=== PATIENT | male | born 1945 | race Caucasian/White ===

== ENCOUNTER 2017-04-05 08:17 | Day surgery (SDC) | payer BC ==
[~2017-04-05 08:17] MED LIST: Lactated Ringers 1,000 ML IV SCH; Lidocaine 1% 4 ML ONE; Lidocaine 1%/Sod Bicarbonate in NS 8.4% 1 ML Syringe PRN; Propofol 200 MG/20 ML SDV ONE; Sodium Chloride 0.9% 10 ML Syringe FLUSH PRN; fentaNYL 100 MCG/2 ML SDV ONE
--- NOTE | 2017-04-05 08:45 | PCM.PREANE ---
Preanesthetic Assessment - Anesthesia/Transfusion/Family Hx Anesthesia History: Prior Anesthesia Without Reaction Family History of Anesthesia Reaction: No Transfusion History: No Prior Transfusion(s) Intubation History: Unknown - Review of Systems General: No Symptoms Pulmonary: No Symptoms (Current smoker: smokes less than 1 pack/day times 30 years) Cardiovascular: No Symptoms Gastrointestinal: No Symptoms, Constipation, Flatus, Melena Neurological: No Symptoms (GERD) Other: Reports: Easy Bleeding, Easy Bruising - Physical Assessment NPO Status Date: 04/04/17 NPO Status Time: 18:00 Pulse: 83 O2 Sat by Pulse Oximetry: 94 Respiratory Rate: 16 Blood Pressure: 156/99 Temperature: 36.9 C Height: 1.78 m Weight: 74.843 kg ASA Class: 2 Mental Status: Alert & Oriented x3 Airway Class: Mallampati = 2 Dentition: Reports: Dentures (upper /lower) Thyro-Mental Finger Breadths: 3 Mouth Opening Finger Breadths: 3 ROM/Head Extension: Full Lungs: Clear to Auscultation, Normal Respiratory Effort Cardiovascular: Regular Rate, Regular Rhythm, No Murmurs - Allergies Allergies/Adverse Reactions: Allergies Allergy/AdvReac Type Severity Reaction Status Date / Time No Known Allergies Allergy Verified 04/04/17 09:24 - Anesthesia Plan Pre-Op Medication Ordered: None - Acknowledgements Anesthesia Type Planned: MAC Pt an Appropriate Candidate for the Planned Anesthesia: Yes Alternatives and Risks of Anesthesia Discussed w Pt/Guardian: Yes Pt/Guardian Understands and Agrees with Anesthesia Plan: Yes PreAnesthesia Questionnaire Genitourinary History: Reports: Prostate Disorder Musculoskeletal History: Other Musculoskeletal History: lower back pain - Past Surgical History HEENT Surgical History: Reports: Cataract Surgery - SUBSTANCE USE Smoking Status *Q: Current Every Day Smoker Days Per Week of Alcohol Use: 0 (very rare alchol use. ) Recreational Drug Use History: No Recreational Drug Type: - HOME MEDS Home Medications: Home Meds Ciprofloxacin HCl [Cipro] 500 mg PO BID #6 tablet 12/17/15 [Rx] Dicyclomine HCl [Bentyl] 20 mg PO Q6HR #6 tablet 12/17/15 [Rx] Flomax. 0.4 mg PO DAILY 12/17/15 [History] Omeprazole. 20 mg PO DAILY 12/17/15 [History] Dutasteride 0.5 mg PO DAILY 04/04/17 [History] Varenicline Tartrate [Chantix] 1 tab PO ASDIRECTED 04/04/17 [History] - CURRENT (IN HOUSE) MEDS Current Meds: Current Medications Lactated Ringer's (Ringers, Lactated) 1,000 mls @ 125 mls/hr IV ASDIRECTED AL Stop: 04/05/17 23:00 Lidocaine/Sodium Bicarbonate (Buffered Lidocaine 1% In Ns 8.4%) 0.25 ml .XX ONETIME PRN PRN Reason: Prior to IV Start Stop: 04/05/17 18:00 Sodium Chloride (Saline Flush) 10 ml FLUSH ASDIRECTED PRN PRN Reason: Keep Vein Open Stop: 04/05/17 18:00 Discontinued Medications Fentanyl (Sublimaze) Confirm Administered Dose 100 mcg .ROUTE .STK-MED ONE Stop: 04/05/17 07:41 Lidocaine HCl (Xylocaine-Mpf 1%) Confirm Administered Dose 4 mls @ as directed .ROUTE .STK-MED ONE Stop: 04/05/17 07:40 Propofol (Diprivan 20 Ml) Confirm Administered Dose 200 mg .ROUTE .STK-MED ONE Stop: 04/05/17 07:40
[2017-04-05] MEDS ORDERED: Lactated Ringers 1,000 ML ONE (10:14)
[2017-04-05] MEDS ORDERED: Propofol 200 MG/20 ML SDV ONE (10:21)
--- NOTE | 2017-04-05 10:28 | PCM48HPAN ---
Post Anesthesia Note - EVALUATION WITHIN 48HRS OF ANESTHETIC Vital Signs in Normal Range: Yes Patient Participated in Evaluation: Yes Respiratory Function Stable: Yes Airway Patent: Yes Cardiovascular Function Stable: Yes Hydration Status Stable: Yes Pain Control Satisfactory: Yes Nausea and Vomiting Control Satisfactory: Yes Mental Status Recovered: Yes
--- NOTE | 2017-04-05 10:34 | PCM.OPNOTE ---
- General Post-Op/Procedure Note Date of Surgery/Procedure: 04/05/17 Operative Procedure(s): 1. Esophagogastroduodenoscopy. 2. Colonoscopy with endoscopic mucosal resection of a proximal rectal polyp, and hot snare polypectomy of a mid rectal polyp Findings: 1. Gastric polyposis with diminutive gastric polyps, mild gastritis 2. Uncomplicated internal hemorrhoids. 3. Prostate hypertrophy 4. Colonic diverticulosis 5. 3 cm sessile and villous type proximal rectal polyp 6. 1 cm mid rectal polyp Pre Op Diagnosis: 1. Melena. 2. Rectal bleeding which change in bowel habits Post-Op Diagnosis: 1. Stable gastric polyposis, mild gastritis. 2. Large rectal polyp and smaller mid rectal polyp. 3. Sigmoid diverticulosis. 4. Uncomplicated internal hemorrhoids. 5. Large hypertrophied prostate Anesthesia Technique: MAC, Moderate Sedation Primary Surgeon: Rc Ferrer Pathology: 1. 2 rectal polyps as described above EBL in mLs: 0 Complications: None Condition: Good Free Text/Narrative:: After adequate IV sedation and analgesia with monitoring the patient was placed on his left side. Through a bite-block lubricated upper endoscope was inserted into the esophagus and easily directed under advance vision into the stomach without difficulty. The pylorus was entered into the duodenum. The second and first parts were normal with no inflammatory changes seen. There are a few very small specks of particular tenderness red blood material within the antrum consistent with mild gastritis. There were no erosions or ulcers seen in the stomach either. In the retroflexed view there was no hiatal hernia. The fundus and body of the stomach contained multiple gastric polyps ranging in size from 2 mm to 8 mm. The scope was then withdrawn to the GE junction which was normal. There were no acute or chronic inflammatory changes in this area. The body of the esophagus was unremarkable. Perianal inspection and digital rectal examination of the anal canal revealed uncomplicated internal hemorrhoids with a large hypertrophied prostate. There were no prostatic nodules appreciated. A lubricated colonoscope was inserted into the rectum and advanced to the cecum without difficulty. The bowel preparation was excellent. The cecum, ascending colon, transverse, and descending colons were normal endoscopically normal. The sigmoid had moderate sized uncomplicated diverticuli. The proximal third of the rectum contained a 3 cm tubulovillous polyp. I used endoscopic mucosal lift technique with dye to hot snare to perform the polypectomy The specimen was retrieved. The area was hemostatic after the polypectomy. There was a small less than 1 cm polyp within the rectum which was also removed with the hot snare. This area was hemostatic after polypectomy. There were no mass lesion seen in the rectum in the retroflexed view but the hemorrhoids were visualized. Photographs are taken for the patient and for the record. Air was removed as I finished the procedure which she tolerated well.
[2017-04-05 10:53] VITALS: BP 147/83
== END 2017-04-05 11:06 | disposition home or self-care (01) ==
LOC: JD.SDS 08:17
PROVIDERS: ATTEND Surgery
DX: D12.8 Benign neoplasm of rectum (principal); K31.7 Polyp of stomach and duodenum; K64.8 Other hemorrhoids; K57.30 Diverticulosis of large intestine without perforation or abscess without bleeding; Z79.899 Other long term (current) drug therapy; Z98.890 Other specified postprocedural states; F17.210 Nicotine dependence, cigarettes, uncomplicated
CPT/HCPCS: 43239; 45385; J3010; J7120; 00810; J2704

== ENCOUNTER 2018-08-30 10:12 | Emergency (ER) | payer BC ==
[2018-08-30] MEDS ORDERED: Sodium Chloride 0.9% 10 ML Syringe FLUSH PRN (10:23)
--- NOTE | 2018-08-30 10:44 | EDM.PDOC ---
ED HPI GENERAL MEDICAL PROBLEM - General Chief Complaint: Chest Pain Stated Complaint: [facility] Time Seen by Provider: 08/30/18 10:22 Source of Information: Reports: Patient, RN Notes Reviewed - History of Present Illness INITIAL COMMENTS - FREE TEXT/NARRATIVE: 73-year-old gentleman had onset of anterior chest discomfort this morning about 3-1/2 hours ago. The pain was across the center of his chest, there was somewhat of a burning component to it but also a pressure and tightness with some radiation to the left arm. He did go to the [place] [facility] apparently about an hour later, was given some aspirin, with that and time the discomfort went away fairly quickly. He was not short of breath. He has not had congestion, coughing, fever or chills. The pain did not radiate to his back. No abdominal pain nausea vomiting or diaphoresis. He does have history of hypertension. He has no known history for diabetes coronary artery disease or other major medical problems. He does not smoke. He states his family history is negative for heart disease to the best of his knowledge. 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 - Related Data Allergies Allergy/AdvReac Type Severity Reaction Status Date / Time No Known Allergies Allergy Verified 08/30/18 10:21 Home Meds: Home Meds Dutasteride [Avodart] 0.5 mg PO DAILY 04/05/17 [History] Omeprazole 20 mg PO DAILY 04/05/17 [History] Tamsulosin [Flomax] 0.4 mg PO DAILY 04/05/17 [History] Past Medical History Genitourinary History: Reports: Prostate Disorder Musculoskeletal History: Other Musculoskeletal History: lower back pain - Past Surgical History HEENT Surgical History: Reports: Cataract Surgery Social & Family History - Tobacco Use Smoking Status *Q: Never Smoker - Caffeine Use Caffeine Use: Reports: Coffee - Recreational Drug Use Recreational Drug Use: No - Living Situation & Occupation Living situation: Reports: Occupation: Employed ED ROS GENERAL - Review of Systems Review Of Systems: See Below Constitutional: Denies: Fever, Chills, Diaphoresis HEENT: Reports: No Symptoms Respiratory: Denies: Shortness of Breath, Pleuritic Chest Pain, Cough Cardiovascular: Reports: Chest Pain (Now gone) GI/Abdominal: Denies: Abdominal Pain, Nausea, Vomiting Musculoskeletal: Reports: Arm Pain (Gone). Denies: Back Pain, Leg Pain Skin: Reports: No Symptoms Neurological: Denies: Dizziness, Trouble Speaking, Difficulty Walking, Weakness ED EXAM, GENERAL - Physical Exam Exam: See Below General Appearance: Alert, No Apparent Distress Eye Exam: Bilateral Eye: PERRL Head: Atraumatic Neck: Supple Respiratory/Chest: No Respiratory Distress, Lungs Clear, Normal Breath Sounds, Chest Non-Tender Cardiovascular: Regular Rate, Rhythm GI/Abdominal: Soft, Non-Tender Extremities: Normal Inspection. No: Pedal Edema, Leg Pain, Increased Warmth, Redness Neurological: Alert, Oriented, No Motor/Sensory Deficits Skin Exam: Warm, Dry, Normal Color EKG INTERPRETATION EKG Date: 08/30/18 Rhythm: NSR P-Wave: Present QRS: Normal ST-T: Normal Course - Vital Signs Last Recorded V/S: Last Vital Signs Temp 98.1 F 08/30/18 10:17 Pulse 87 08/30/18 11:56 Resp 16 08/30/18 10:17 BP 159/112 H 08/30/18 11:56 Pulse Ox 97 08/30/18 10:17 - Orders/Labs/Meds Orders: Active Orders 24 hr Category Date Time Status EKG 12 Lead [EKG Documentation Completion] [RC] STAT Care 08/30/18 10:20 Active CBC W/O DIFF,HEMOGRAM [HEME] MOTH@0700 Lab 09/03/18 07:00 Ordered CBC W/O DIFF,HEMOGRAM [HEME] MOTH@0700 Lab 09/06/18 07:00 Ordered CBC W/O DIFF,HEMOGRAM [HEME] MOTH@0700 Lab 09/10/18 07:00 Ordered CBC W/O DIFF,HEMOGRAM [HEME] MOTH@0700 Lab 09/13/18 07:00 Ordered CBC W/O DIFF,HEMOGRAM [HEME] MOTH@0700 Lab 09/17/18 07:00 Ordered CBC W/O DIFF,HEMOGRAM [HEME] MOTH@0700 Lab 09/20/18 07:00 Ordered Heparin Sodium/D5W [Heparin 25,000 Units in D5W 500 ML] Med 08/30/18 11:45 Active 25,000 units in 500 ml IV TITRATE Sodium Chloride 0.9% [Saline Flush] Med 08/30/18 10:23 Active 10 ml FLUSH ASDIRECTED PRN Saline Lock Insert [OM.PC] Routine Oth 08/30/18 10:23 Ordered Medication Orders Heparin Sodium/Dextrose (Heparin 25,000 Units In D5w 500 Ml) 25,000 units in 500 mls @ 19.595 mls/hr IV TITRATE AL; Protocol Last Admin: 08/30/18 11:49 Dose: 12 units/kg/hr, 19.595 mls/hr Sodium Chloride (Saline Flush) 10 ml FLUSH ASDIRECTED PRN PRN Reason: Keep Vein Open Last Admin: 08/30/18 10:32 Dose: 10 ml Labs: Laboratory Tests 08/30/18 08/30/18 08/30/18 Range/Units 10:23 10:23 10:23 WBC 7.16 (4.23-9.07) K/mm3 RBC 5.39 (4.63-6.08) M/mm3 Hgb 15.1 (13.7-17.5) gm/L Hct 46.8 (40.1-51.0) % MCV 86.8 (79.0-92.2) fl MCH 28.0 (25.7-32.2) pg MCHC 32.3 (32.2-35.5) g/dl RDW Std Deviation 41.6 (35.1-43.9) fL Plt Count 160 L (163-337) K/mm3 MPV 8.6 L (9.4-12.3) fl Neut % (Auto) 61.6 (34.0-67.9) % Lymph % (Auto) 28.8 (21.8-53.1) % [place] % (Auto) 7.7 (5.3-12.2) % Eos % (Auto) 1.0 (0.8-7.0) Baso % (Auto) 0.6 (0.1-1.2) % Neut # (Auto) 4.42 (1.78-5.38) K/mm3 Lymph # (Auto) 2.06 (1.32-3.57) K/mm3 [place] # (Auto) 0.55 (0.30-0.82) K/mm3 Eos # (Auto) 0.07 (0.04-0.54) K/mm3 Baso # (Auto) 0.04 (0.01-0.08) K/mm3 Sodium 142 (136-145) mEq/L Potassium 4.2 (3.5-5.1) mEq/L Chloride 104 (98-107) mEq/L Carbon Dioxide 31 (21-32) mEq/L Anion Gap 11.2 (5-15) BUN 19 H (7-18) mg/dL Creatinine 1.0 (0.7-1.3) mg/dL Est Cr Clr Drug Dosing 68.94 mL/min Estimated GFR (MDRD) > 60 (>60) mL/min BUN/Creatinine Ratio 19.0 H (14-18) Glucose 83 (83-115) mg/dL Calcium 8.8 (8.5-10.1) mg/dL Total Bilirubin 0.3 (0.2-1.0) mg/dL AST 22 (15-37) U/L ALT 27 (16-63) U/L Alkaline Phosphatase 88 (46-116) U/L CK-MB (CK-2) 2.9 (0-3.6) ng/ml Troponin I 0.552 H* (0.00-0.056) ng/mL Total Protein 7.5 (6.4-8.2) g/dl Albumin 3.3 L (3.4-5.0) g/dl Globulin 4.2 gm/dL Albumin/Globulin Ratio 0.8 L (1-2) Meds: Medications Generic Name Dose Route Start Last Admin Trade Name Freq PRN Reason Stop Dose Admin Heparin Sodium/Dextrose 25,000 units in 500 mls @ 19.595 mls/hr 08/30/18 11: 45 08/30/18 11:49 Heparin 25,000 Units In D5w 500 Ml IV 12 units/kg/hr TITRATE AL 19.595 mls/hr Administration Protocol 12 UNITS/KG/HR Sodium Chloride 10 ml 08/30/18 10:23 08/30/18 10:32 Saline Flush FLUSH 10 ml ASDIRECTED PRN Administration Keep Vein Open Discontinued Medications Generic Name Dose Route Start Last Admin Trade Name Freq PRN Reason Stop Dose Admin Heparin Sodium (Porcine) 4,000 units 08/30/18 11:37 08/30/18 11:46 Heparin Sodium IVPUSH 08/30/18 11:38 4,000 units ONETIME ONE Administration Metoprolol Tartrate 5 mg 08/30/18 11:35 08/30/18 11:43 Lopressor IVPUSH 08/30/18 11:36 5 mg ONETIME ONE Administration Metoprolol Tartrate 50 mg 08/30/18 11:49 08/30/18 11:56 Lopressor PO 08/30/18 11:50 50 mg ONETIME ONE Administration Nitroglycerin 1 gm 08/30/18 11:49 08/30/18 11:58 Nitro-Bid 2% TOP 08/30/18 11:50 1 gm ONETIME ONE Administration - Re-Assessments/Exams Free Text/Narrative Re-Assessment/Exam: 08/30/18 12:07 Troponin did come back elevated at 0.55. As noted his EKG did not show acute changes on arrival. He has remained pain-free while here in the ED. He did have aspirin 324 mg orally about 3 hours ago at the [facility] prior to transfer. I have ordered Lopressor 5 mg IV for his blood pressure which is remained elevated since arrival. Have also given Lopressor 50 mg by mouth. He is been given heparin 1000 unit IV bolus and started on a drip at 4000 units per hour. I discussed this with Dr. Begum, Hospitalist for [facility] shanti Pal. Patient and family have requested he be transferred to [facility]. He will be sent by ground ambulance. Chest x-ray normal, other labs all relatively normal as well. 08/30/18 12:11. Patient initially had denied other episodes of chest discomfort of this nature but now when I did visit with him a few minutes ago he states he had an episode of similar discomfort has Monday which would've been 4 days ago. Departure - Departure Time of Disposition: 12:10 Disposition: DC/Tfer to [facility] 02 Reason for Transfer *Q: Other Condition: Fair Clinical Impression: Acute coronary syndrome Referrals: Meggan Benavides [employer] CAR ATTENDANT [Primary Care Provider] - Forms: ED Department Discharge - My Orders Last 24 Hours: My Active Orders 08/30/18 10:20 EKG 12 Lead [EKG Documentation Completion] [RC] STAT 08/30/18 10:23 Sodium Chloride 0.9% [Saline Flush] 10 ml FLUSH ASDIRECTED PRN Saline Lock Insert [OM.PC] Routine 08/30/18 11:45 Heparin Sodium/D5W [Heparin 25,000 Units in D5W 500 ML] 25,000 units in 500 ml IV TITRATE 09/03/18 07:00 CBC W/O DIFF,HEMOGRAM [HEME] MOTH@0709/06/18 07:00 CBC W/O DIFF,HEMOGRAM [HEME] MOTH@69909/10/18 07:00 CBC W/O DIFF,HEMOGRAM [HEME] MOTH@0709/13/18 07:00 CBC W/O DIFF,HEMOGRAM [HEME] MOTH@0709/17/18 07:00 CBC W/O DIFF,HEMOGRAM [HEME] MOTH@69909/20/18 07:00 CBC W/O DIFF,HEMOGRAM [HEME] MOTH@699 - Assessment/Plan Last 24 Hours: My Active Orders 08/30/18 10:20 EKG 12 Lead [EKG Documentation Completion] [RC] STAT 08/30/18 10:23 Sodium Chloride 0.9% [Saline Flush] 10 ml FLUSH ASDIRECTED PRN Saline Lock Insert [OM.PC] Routine 08/30/18 11:45 Heparin Sodium/D5W [Heparin 25,000 Units in D5W 500 ML] 25,000 units in 500 ml IV TITRATE 09/03/18 07:00 CBC W/O DIFF,HEMOGRAM [HEME] MOTH@0709/06/18 07:00 CBC W/O DIFF,HEMOGRAM [HEME] MOTH@69909/10/18 07:00 CBC W/O DIFF,HEMOGRAM [HEME] MOTH@69909/13/18 07:00 CBC W/O DIFF,HEMOGRAM [HEME] MOTH@0709/17/18 07:00 CBC W/O DIFF,HEMOGRAM [HEME] MOTH@0709/20/18 07:00 CBC W/O DIFF,HEMOGRAM [HEME] MOTH@699
--- NOTE | 2018-08-30 11:04 | CR ---
Chest: Portable view of the chest is obtained. Comparison: Prior chest x-ray of 11/30/17. Heart size is normal. Tortuous thoracic aorta is seen. Lungs are clear but no acute parenchymal change. Bony structures are grossly intact. Impression: 1. Nothing acute is seen on portable chest x-ray. Diagnostic code #2
[2018-08-30] MEDS ORDERED: Metoprolol Tartrate 5 MG/5 ML SDV IVPUSH ONE (11:35)
[2018-08-30] MEDS ORDERED: Heparin Sodium 5,000 Units/ML Vial IVPUSH ONE (11:37)
[2018-08-30] MEDS ORDERED: Heparin Sodium/D5W 25,000 UNITS/500 ML BAG IV SCH (11:45)
[2018-08-30] MEDS ORDERED: Metoprolol Tartrate 50 MG Tab PO ONE (11:49)
[2018-08-30] MEDS ORDERED: Nitroglycerin 2% Oint 1 GM UD Packet TOP ONE (11:49)
[2018-08-30 11:58] VITALS: BP 159/112
== END 2018-08-30 13:09 ==
LOC: JD.ED 10:12
DX: I24.9 Acute ischemic heart disease, unspecified (principal); Z79.899 Other long term (current) drug therapy
CPT/HCPCS: 36415; 71045; 80053; 82553; 84484; 85025; 93005; 96365; 96375; 96376; 99285; A9270; J1644; J3490

== ENCOUNTER 2019-09-19 17:39 | Emergency (ER) | payer BC ==
[2019-09-19 18:14] VITALS: BP 164/106; PULSE 92
--- NOTE | 2019-09-19 18:28 | EDM.PDOC ---
<Anna Flores - Last Filed: 09/19/19 18:23> ED HPI GENERAL MEDICAL PROBLEM - General Chief Complaint: Genitourinary Problem Stated Complaint: POSSIBLE KIDNEY STONES Time Seen by Provider: 09/19/19 18:15 Source of Information: Reports: Patient History Limitations: Reports: No Limitations - History of Present Illness INITIAL COMMENTS - FREE TEXT/NARRATIVE: Patient is a pleasant 74-year-old gentleman that presents tonight with his and daughter for left flank pain that started last evening. He reports the pain came on suddenly last night and was a 10/10 sharp intermittent pain that caused him to have an episode of vomiting. He reports he was nauseous throughout the night, but this has resolved. He also notes he felt warm and had the chills, but this has resolved as well. He notes his pain in the ED is a 5-6/10. He denies burning with urination and hematuria. He had a similar episode of pain, but on the right side, back on August 27, 2018 when he was traveling through [place]. He was seen at the medical facility there and his reports they did a CT that showed a 4mm stone and she thinks it was in the right ureter. He did not strain his urine so he is unsure if he passed that stone. 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 He reports he also takes Flomax, which he has been on for the past 3-4 years. Onset: Sudden Duration: Day(s): Location: Reports: Back (left flank) Quality: Reports: Sharp Severity: Mild Associated Symptoms: Reports: No Other Symptoms Treatments [employer] ADMINISTRATOR: Reports: NSAIDS, Other Medication(s) (Hydrocodone) Left Lower Back Pain Score (Numeric/FACES): 5 - Related Data Allergies Allergy/AdvReac Type Severity Reaction Status Date / Time No Known Allergies Allergy Verified 09/19/18 08:44 Home Meds: Home Meds Dutasteride [Avodart] 0.5 mg PO DAILY 04/05/17 [History] Tamsulosin [Flomax] 0.4 mg PO DAILY 04/05/17 [History] Aspirin [[place] Aspirin] 81 mg PO DAILY 09/13/18 [History] Metoprolol Succinate 25 mg PO DAILY 09/13/18 [History] Rosuvastatin [Crestor] 20 mg PO DAILY 09/13/18 [History] Sildenafil [Revatio] 100 mg PO ASDIRECTED PRN 09/13/18 [History] Clopidogrel [Plavix] 75 mg PO DAILY 09/19/18 [History] Multivitamin [Multivitamins] 1 tab PO DAILY 09/19/18 [History] Orphenadrine [Norflex] 1 tab PO Q12H PRN #14 tab.er 02/28/19 [Rx] Hydrocodone/Acetaminophen [Hydrocodon-Acetaminophen 5-325] 1 - 2 each PO Q4HR PRN #15 tablet 09/19/19 [Rx] Tamsulosin [Tamsulosin 24 Hr] 0.4 mg PO DAILY #7 cap.er 09/19/19 [Rx] Past Medical History Cardiovascular History: Reports: CAD, High Cholesterol, Hypertension, [place] Genitourinary History: Reports: BPH, Renal Calculus Musculoskeletal History: Reports: Arthritis, Back Pain, Chronic Other Musculoskeletal History: lower back pain - Past Surgical History HEENT Surgical History: Reports: Cataract Surgery, Oral Surgery Cardiovascular Surgical History: Reports: Coronary Artery Stent Neurological Surgical History: Reports: Lumbar Spine Musculoskeletal Surgical History: Reports: Amputation, Other (See Below) Social & Family History - Tobacco Use Smoking Status *Q: Former Smoker Used Tobacco, but Quit: Yes Month/Year Tobacco Last Used: 4 - Caffeine Use Caffeine Use: Reports: Coffee - Recreational Drug Use Recreational Drug Use: No - Living Situation & Occupation Living situation: Reports: , with Spouse Occupation: Employed (Owns a body shop) ED ROS GENERAL - Review of Systems Review Of Systems: See Below Constitutional: Reports: No Symptoms. Denies: Fever, Chills, Weakness Respiratory: Reports: No Symptoms. Denies: Shortness of Breath, Cough Cardiovascular: Reports: No Symptoms. Denies: Chest Pain, Lightheadedness, Syncope GI/Abdominal: Reports: Nausea (occasionally), Vomiting (last evening 1 episode) . Denies: Abdominal Pain, Diarrhea : Reports: Flank Pain (Left). Denies: Dysuria, Frequency, Hematuria Musculoskeletal: Reports: No Symptoms. Denies: Back Pain Skin: Reports: No Symptoms. Denies: Rash, Erythema Neurological: Reports: No Symptoms Psychiatric: Reports: No Symptoms ED EXAM, RENAL/ - Physical Exam Exam: See Below Exam Limited By: No Limitations General Appearance: Alert, WD/WN, No Apparent Distress Respiratory/Chest: No Respiratory Distress, Lungs Clear, Normal Breath Sounds, Chest Non-Tender Cardiovascular: Normal Peripheral Pulses, Regular Rate, Rhythm, No Edema, No Murmur GI/Abdominal: Normal Bowel Sounds, Soft, Non-Tender, No Organomegaly, No Distention, No Mass Back Exam: Normal Inspection, Full Range of Motion, CVA Tenderness (L). No: CVA Tenderness (R) Extremities: Normal Inspection, Normal Range of Motion, Non-Tender, No Pedal Edema, Normal Capillary Refill Neurological: Alert, Oriented, Normal Cognition, No Motor/Sensory Deficits Psychiatric: Normal Affect, Normal Mood Skin Exam: Warm, Dry, Intact, No Rash. No: Ecchymosis, Erythema Course - Vital Signs Last Recorded V/S: Last Vital Signs Temp 97.6 F 09/19/19 17:45 Pulse 92 09/19/19 17:45 Resp 18 09/19/19 17:45 BP 164/106 H 09/19/19 17:45 Pulse Ox 97 09/19/19 17:45 - Orders/Labs/Meds Orders: Active Orders 24 hr Category Date Time Status Sodium Chloride 0.9% [Normal Saline] 1,000 ml Med 09/19/19 19:00 Active IV ASDIRECTED Medication Orders Sodium Chloride (Normal Saline) 1,000 mls @ 150 mls/hr IV ASDIRECTED AL Last Admin: 09/19/19 19:06 Dose: 150 mls/hr Labs: Laboratory Tests 09/19/19 Range/Units 18:17 Urine Color Yellow (Yellow) Urine Appearance Clear (Clear) Urine pH 6.0 (5.0-8.0) Ur Specific [place] > or = 1.030 (1.005-1.030) Urine Protein Trace H (Negative) Urine Glucose (UA) Negative (Negative) Urine Ketones Negative (Negative) Urine Occult Blood 3+ H (Negative) Urine Nitrite Negative (Negative) Urine Bilirubin Negative (Negative) Urine Urobilinogen 0.2 (0.2-1.0) Ur Leukocyte Esterase Negative (Negative) Urine RBC 10-20 H (0-5) /hpf Urine WBC 0-5 (0-5) /hpf Ur Squamous Epith Cells 0-5 (0-5) /hpf Urine Bacteria Occasional (FEW) /hpf Urine Mucus Few (FEW) /hpf Meds: Medications Generic Name Dose Route Start Last Admin Trade Name Freq PRN Reason Stop Dose Admin Sodium Chloride 1,000 mls @ 150 mls/hr 09/19/19 19:00 09/19/19 19:06 Normal Saline IV 150 mls/hr ASDIRECTED AL Administration Discontinued Medications Generic Name Dose Route Start Last Admin Trade Name Fanq PRN Reason Stop Dose Admin Hydrocodone Bitart/Acetaminophen 2 tab 09/19/19 19:34 09/19/19 19:42 [place] 325-5 Mg PO 09/19/19 19:35 2 tab ONETIME ONE Administration Hydromorphone HCl 0.5 mg 09/19/19 18:49 09/19/19 19:06 Dilaudid IVPUSH 09/19/19 18:50 0.5 mg ONETIME ONE Administration Ketorolac Tromethamine 30 mg 09/19/19 18:49 09/19/19 19:06 Toradol IVPUSH 09/19/19 18:50 30 mg ONETIME ONE Administration Ondansetron HCl 4 mg 09/19/19 18:49 09/19/19 19:06 Zofran IVPUSH 09/19/19 18:50 4 mg ONETIME ONE Administration Ondansetron HCl 4 mg 09/19/19 19:34 09/19/19 19:42 Zofran Odt PO 09/19/19 19:35 4 mg ONETIME ONE Administration Departure - Departure Disposition: Home, Self-Care 01 Clinical Impression: Kidney stone - Discharge Information Prescriptions: Hydrocodone/Acetaminophen [Hydrocodon-Acetaminophen 5-325] 1 - 2 each PO Q4HR PRN #15 tablet PRN Reason: Pain Tamsulosin [Tamsulosin 24 Hr] 0.4 mg PO DAILY #7 cap.er Instructions: Kidney Stones Referrals: Meggan Benavides CONTENT CHECKER [Primary Care Provider] - Forms: ED Department Discharge Additional Instructions: You were seen in the emergency department today for left-sided back pain that started last night. A CT of your abdomen was done which did show two 4 mm stones within the left ureter. The stones were near the bladder and should pass without difficulty. A prescription for hydrocodone and Flomax has been provided for you. If you continue to have pain you may fill these prescriptions and use them as directed. You have also been provided with a urine strainer. Strain your urine until you are able to see the stones. If you are able to capture the stone take it to your primary care provider to have pathology done on it. 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 This dilation is currently well below the size that would require surgical intervention, however it is important that this be monitored to ensure that it is not growing in size. I recommend that you contact your primary care provider to make her aware of this. She is also been copied and on this interaction and should receive a copy of this note. I have also provided you with a copy of the CT report that you may give to your provider. If you experience any new or worsening symptoms, please do not hesitate to return to the emergency department. Sepsis Event Note - Evaluation Sepsis Screening Result: No Definite Risk - Focused Exam Vital Signs: Vital Signs Temp Pulse Resp BP Pulse Ox 09/19/19 17:45 97.6 F 92 18 164/106 H 97 Date Exam was Performed: 09/19/19 Time Exam was Performed: 18:23 - My Orders Last 24 Hours: My Active Orders 09/19/19 19:00 Sodium Chloride 0.9% [Normal Saline] 1,000 ml IV ASDIRECTED - Assessment/Plan Last 24 Hours: My Active Orders 09/19/19 19:00 Sodium Chloride 0.9% [Normal Saline] 1,000 ml IV ASDIRECTED <Hellen Putnam - Last Filed: 09/19/19 20:28> Course - Re-Assessments/Exams Free Text/Narrative Re-Assessment/Exam: 09/19/19 19:40 I was notified by nursing staff that patient's IV infiltrated after giving the IV Toradol. He had not yet received the Zofran or Dilaudid. They have attempted multiple attempts to get another IV but have been unsuccessful. We will give oral [place] 2 tabs as well as Zofran ODT. Urinalysis at this point does show 3+ occult blood so patient likely has a kidney stone. Awaiting official read on the CT scan. 09/19/19 19:44 I have examined the patient and agree with the HPI, ROS, and exam as documented by [employer] [place] student. 09/19/19 20:[address] did show 2 obstructing calculi within the distal left ureter at the UVJ and proximal to the UVJ. There are also nonobstructing calculi within both kidneys. CT did also note that the aorta shows areas of ectasia with minimal aneurysmal dilation within the mid aorta with an AP dimension of 2.8 cm. This is a change from his previous CT. Discussed this with the patient and he has no known history of an aortic aneurysm. The dimensions are well below requiring treatment at this time. I did tell him that he should contact his primary care to make sure she is aware of this as this is something that should be monitored generally on an annual basis. I will also ensure that the report that is done today is sent to his primary care provider, Meggan Benavides. Patient is having little to no pain at this time. I will send him a prescription for hydrocodone's and Flomax to [facility]. Discharge instructions as documented Departure - Departure Time of Disposition: 20:23 Condition: Fair - Discharge Information *PRESCRIPTION DRUG MONITORING PROGRAM REVIEWED*: No *COPY OF PRESCRIPTION DRUG MONITORING REPORT IN PATIENT RAFAEL: No Sepsis Event Note - Focused Exam Date Exam was Performed: 09/19/19 Time Exam was Performed: 20:19
[2019-09-19] MEDS ORDERED: Ondansetron 4 MG/2 ML SDV IVPUSH ONE (18:49)
[2019-09-19] MEDS ORDERED: HYDROmorphone 0.5 MG/0.5 ML Syringe IVPUSH ONE (18:49)
[2019-09-19] MEDS ORDERED: Ketorolac 30 MG/ML SDV IVPUSH ONE (18:49)
[2019-09-19] MEDS ORDERED: Sodium Chloride 0.9% 1,000 ML IV SCH (19:00)
[2019-09-19] MEDS ORDERED: Ondansetron 4 MG Tab.DIS PO ONE (19:34)
[2019-09-19] MEDS ORDERED: Acetaminophen/HYDROcodone 325-5 MG Tab PO ONE (19:34)
--- NOTE | 2019-09-19 19:49 | CT ---
CT abdomen and pelvis Technique: Multiple axial sections were obtained from above the dome of the diaphragm inferiorly through the pubic symphysis. Intravenous contrast was not utilized. Oral contrast also not utilized. Study has been performed as a ureteral stone protocol. Comparison: Prior CT abdomen and pelvis exam of 12/17/15. Findings: 2 calculi are seen within the distal right ureter. One lies at the right UVJ projecting into the bladder and measures 4 mm. An additional 4 mm stone is noted within the distal right ureter slightly proximal to the UVJ. No other ureteral calculi are seen. These obstructing calculi because mild proximal hydronephrosis. Nonobstructing calculi are seen within both kidneys. Other findings: Visualized lung bases show nothing acute. Cholesterol containing gallstones are seen within the gallbladder. Liver contains no focal parenchymal abnormality. Spleen appears within normal limits. Small hiatal hernia is present. Adrenal glands show no nodule. Pancreas is within normal limits. Aorta shows atherosclerotic calcification with areas of ectasia and minimal aneurysmal dilatation up to 2.8 cm within the mid aorta. No retroperitoneal adenopathy or mesenteric abnormalities are seen. No pelvic mass or adenopathy is appreciated. Prostate gland is enlarged. Diverticuli are seen within the sigmoid and descending colon without inflammatory change of diverticulitis. Appendix is seen which is normal in size. Bone window settings were reviewed which shows degenerative change within the lower lumbar spine primarily L3-4, L4-5 and L5-S1. No acute osseous finding is appreciated. Impression: 1. 2 obstructing calculi within the distal left ureter as described above. 2. Nonobstructing calculi within both kidneys. 3. Aorta shows areas of ectasia with minimal aneurysmal dilatation within the mid aorta with AP dimension of 2.8 cm. This aneurysm is an interval change from previous exam. 4. Cholesterol gallstones within the gallbladder. 5. Other findings which are believed to be incidental. Diagnostic code #3 This report was dictated in [place] Standard Time
== END 2019-09-19 20:36 | disposition home or self-care (01) ==
LOC: JD.ED 17:39
DX: N13.2 Hydronephrosis with renal and ureteral calculous obstruction (principal); I25.10 Atherosclerotic heart disease of native coronary artery without angina pectoris; I10 Essential (primary) hypertension; I25.2 Old myocardial infarction; N40.0 Benign prostatic hyperplasia without lower urinary tract symptoms; Z87.442 Personal history of urinary calculi; Z87.891 Personal history of nicotine dependence; Z79.899 Other long term (current) drug therapy; Z79.82 Long term (current) use of aspirin; Z79.02 Long term (current) use of antithrombotics/antiplatelets
CPT/HCPCS: 74176; 81001; 96374; 99284; A9270; J1885; J2405; J7030; J1170

== ENCOUNTER 2019-09-21 14:44 | Emergency (ER) | payer BC ==
[2019-09-21] MEDS ORDERED: Ondansetron 4 MG/2 ML SDV IVPUSH ONE (15:14)
[2019-09-21] MEDS ORDERED: Tamsulosin 0.4 MG Cap.ER PO STA (15:14)
[2019-09-21] MEDS ORDERED: HYDROmorphone 1 MG/ML Syringe IVPUSH STA (15:14)
[2019-09-21] MEDS ORDERED: Sodium Chloride 0.9% 1,000 ML IV SCH (15:15)
--- NOTE | 2019-09-21 15:46 | EDM.PDOC ---
ED HPI GENERAL MEDICAL PROBLEM - General Chief Complaint: Genitourinary Problem Stated Complaint: POSSIBLE KIDNEY STONES Time Seen by Provider: 09/21/19 15:13 Source of Information: Reports: Patient, Old Records (previous visit from 2019), RN Notes Reviewed History Limitations: Reports: No Limitations - History of Present Illness INITIAL COMMENTS - FREE TEXT/NARRATIVE: Patient is a 74-year-old male who presents to the ED for the evaluation of ongoing left-sided flank pain. The patient notes that he was seen in this ER this last , 09/19/2019, and diagnosed with some left-sided kidney stones. He notes that everything was going okay yesterday but he woke this morning at around 3 AM and went to the bathroom and he had sudden onset pain develop again. He is having some associated nausea and vomiting with this today. He states that he has been straining his urine and has not passed any stones at this time. He states that he did take his hydrocodone for pain management a few hours ago. The notes that they had to stop at least 3 times in the car on the way here because the patient was nauseous and had to vomit. They live over an hour away. He has not developed any fevers or chills, nor has he noted any blood in his urine. Left Flank Pain Score (Numeric/FACES): 10 - Related Data Allergies Allergy/AdvReac Type Severity Reaction Status Date / Time No Known Allergies Allergy Verified 09/21/19 15:06 Home Meds: Home Meds Dutasteride [Avodart] 0.5 mg PO DAILY 04/05/17 [History] Aspirin [[place] Aspirin] 81 mg PO DAILY 09/13/18 [History] Metoprolol Succinate 25 mg PO DAILY 09/13/18 [History] Rosuvastatin [Crestor] 20 mg PO DAILY 09/13/18 [History] Clopidogrel [Plavix] 75 mg PO DAILY 09/19/18 [History] Multivitamin [Multivitamins] 1 tab PO DAILY 09/19/18 [History] Hydrocodone/Acetaminophen [Hydrocodon-Acetaminophen 5-325] 1 - 2 each PO Q4HR PRN #15 tablet 09/19/19 [Rx] Tamsulosin [Tamsulosin 24 Hr] 0.4 mg PO DAILY #7 cap.er 02/06/20 [Rx] Past Medical History Cardiovascular History: Reports: CAD, High Cholesterol, Hypertension, [place] Genitourinary History: Reports: BPH, Renal Calculus Musculoskeletal History: Reports: Arthritis, Back Pain, Chronic Other Musculoskeletal History: lower back pain - Past Surgical History HEENT Surgical History: Reports: Cataract Surgery, Oral Surgery Cardiovascular Surgical History: Reports: Coronary Artery Stent Neurological Surgical History: Reports: Lumbar Spine Musculoskeletal Surgical History: Reports: Amputation, Other (See Below) Social & Family History - Tobacco Use Smoking Status *Q: Never Smoker Second Hand Smoke Exposure: No - Caffeine Use Caffeine Use: Reports: Coffee - Recreational Drug Use Recreational Drug Use: No - Living Situation & Occupation Living situation: Reports: , with Spouse Occupation: Employed (Owns a body shop) ED ROS GENERAL - Review of Systems Review Of Systems: See Below Constitutional: Denies: Fever, Chills GI/Abdominal: Reports: Nausea, Vomiting. Denies: Constipation, Diarrhea : Reports: Flank Pain (L flank). Denies: Dysuria, Frequency, Hematuria, Urgency, Urinary Retention ED EXAM, RENAL/ - Physical Exam Exam: See Below Exam Limited By: No Limitations General Appearance: Alert, WD/WN, No Apparent Distress (pt appears to be in a mild amount of pain at this time.) Respiratory/Chest: No Respiratory Distress, Lungs Clear, Normal Breath Sounds, No Accessory Muscle Use, Chest Non-Tender Cardiovascular: Normal Peripheral Pulses, Regular Rate, Rhythm, No Murmur GI/Abdominal: Normal Bowel Sounds, Soft, Non-Tender, No Distention, No Mass Back Exam: No: CVA Tenderness (L), CVA Tenderness (R) Extremities: Normal Inspection, Normal Capillary Refill Neurological: Alert, Oriented, Normal Cognition, No Motor/Sensory Deficits Psychiatric: Normal Affect, Normal Mood Skin Exam: Warm, Dry, Intact, Normal Color, No Rash Course - Vital Signs Last Recorded V/S: Last Vital Signs Temp 98.9 F 09/21/19 17:40 Pulse 86 09/21/19 17:40 Resp 18 09/21/19 17:40 BP 136/83 09/21/19 17:40 Pulse Ox 96 09/21/19 17:40 - Orders/Labs/Meds Orders: Active Orders 24 hr Category Date Time Status Strain Urine [RC] ASDIRECTED Care 09/21/19 15:14 Active Labs: Laboratory Tests 09/21/19 Range/Units 16:50 Urine Color Yellow (Yellow) Urine Appearance Clear (Clear) Urine pH 6.0 (5.0-8.0) Ur Specific [place] 1.025 (1.005-1.030) Urine Protein Negative (Negative) Urine Glucose (UA) Negative (Negative) Urine Ketones Negative (Negative) Urine Occult Blood 2+ H (Negative) Urine Nitrite Negative (Negative) Urine Bilirubin Negative (Negative) Urine Urobilinogen 0.2 (0.2-1.0) Ur Leukocyte Esterase Negative (Negative) Urine RBC 10-20 H (0-5) /hpf Urine WBC 0-5 (0-5) /hpf Ur Epithelial Cells 0-5 (0-5) /hpf Urine Bacteria Not seen (FEW) /hpf Urine Mucus Few (FEW) /hpf Meds: Medications Discontinued Medications Generic Name Dose Route Start Last Admin Trade Name Freq PRN Reason Stop Dose Admin Hydromorphone HCl 1 mg 09/21/19 15:14 09/21/19 15:21 Dilaudid IVPUSH 09/21/19 15:15 1 mg ONETIME STA Administration Sodium Chloride 1,000 mls @ 150 mls/hr 09/21/19 15:15 09/21/19 15:24 Normal Saline IV 150 mls/hr ASDIRECTED AL Administration Ketorolac Tromethamine 30 mg 09/21/19 16:05 09/21/19 16:13 Toradol IVPUSH 09/21/19 16:06 30 mg ONETIME ONE Administration Ondansetron HCl 4 mg 09/21/19 15:14 09/21/19 15:19 Zofran IVPUSH 09/21/19 15:15 4 mg ONETIME ONE Administration Tamsulosin HCl 0.4 mg 09/21/19 15:14 09/21/19 15:25 Flomax PO 09/21/19 15:15 Not Given ONETIME STA - Re-Assessments/Exams Free Text/Narrative Re-Assessment/Exam: 09/21/19 16:11 Patient presents to the ED for the evaluation of ongoing left-sided flank pain. I did order IV to be placed, with urinalysis, 1 mg of Dilaudid initially, 4 mg Zofran for nausea, and a repeat abdomen pelvis CT to see if the stones have moved much. I did review the last report, and it does appear that he had 2 stones sitting fairly close to his bladder. Official radiology read is pending on his CT done today, but it does appear that they may have passed into the bladder. He still does have 1 stone within his left kidney. Patient reported a mild amount of relief with the 1 mg of dilaudid he initially received. I did order 30mg IV toradol for ongoing pain management. 09/21/19 16:18 CT report is back, there are 2 calcifications seen projecting within the bladder. One calcification is in close proximity to the UVJ and if within the UVJ is very distally located and having moved more distal from the previous exam. There is another calcification noticed within the bladder. No other abnormal calcifications are seen. The left renal pelvis still remains slightly dilated. And there are nonobstructing calculi seen within both kidneys at this time. It was my observation, that the patient did have a diffuse amount of stool within his colon as well which would suggest mild constipation. If he is taking opioid pain medications, he very well could have slight constipation. I will mention this to him when his pain is a little bit better under control. 09/21/19 17:19 Urinalysis demonstrates blood in the urine only, there is no sign of an infection at this time. Patient will be discharged home with general recommendations, he already has hydrocodone at home and a paper prescription for the hydrocodone that was provided for him on 09/19/2019. states she will go to the pharmacy on Monday and fill this if needed. Of note patient is pain-free at this time. Departure - Departure Time of Disposition: 17:20 Disposition: Home, Self-Care 01 Condition: Fair Clinical Impression: Kidney stone on left side - Discharge Information *PRESCRIPTION DRUG MONITORING PROGRAM REVIEWED*: Yes *COPY OF PRESCRIPTION DRUG MONITORING REPORT IN PATIENT RAFAEL: No Instructions: Kidney Stones, [id number] Referrals: Meggan Benavides CAR PRE COOLER [Primary Care Provider] - Forms: ED Department Discharge Additional Instructions: You were evaluated in the ER today for your left flank pain. Your urinalysis did demonstrate some blood in urine, which is suggestive of a kidney stone at this time. A CT was done at this ER visit, this demonstrated that you did have some kidney stones, and these did appear to have dropped into the bladder on the left side. You do also have kidney stones within your kidneys, and these may likely dislodge themselves at some point, however this is not the source of your pain today.. You have been given a strainer, please use every time you use the bathroom to make sure that the kidney stone has passed. Recommend that you increase your oral fluid intake to try to help the stone pass. You have been given a few tablets of pain medication from a previous visit, please take as prescribed. These medications are highly addictive, please take as few as you need to. These medications also may cause constipation, please take a stool softener like MiraLAX while taking these medications. If your pain is not much better in a week's time, you may need to follow up with your primary care physician, for a possible urology referral. Please return to the ED if your symptoms change or worsen. Sepsis Event Note - Evaluation Sepsis Screening Result: No Definite Risk - Focused Exam Vital Signs: Vital Signs Temp Pulse Resp BP Pulse Ox 09/21/19 17:40 98.9 F 86 18 136/83 96 09/21/19 14:50 98.6 F 92 20 161/92 H 97 Date Exam was Performed: 09/21/19 Time Exam was Performed: 23:38 - My Orders Last 24 Hours: My Active Orders 09/21/19 15:14 Strain Urine [RC] ASDIRECTED - Assessment/Plan Last 24 Hours: My Active Orders 09/21/19 15:14 Strain Urine [RC] ASDIRECTED
[2019-09-21] MEDS ORDERED: Ketorolac 30 MG/ML SDV IVPUSH ONE (16:05)
--- NOTE | 2019-09-21 16:10 | CT ---
CT abdomen and pelvis Technique: Multiple axial sections were obtained from above the kidneys inferiorly through the pubic symphysis. Comparison: Previous CT stone protocol of 09/19/19. 2 calcifications are seen projecting within the bladder. One calcification is in close proximity to the UVJ and if within the UVJ is very distally located having having moved more distal from previous exam. Other calcification is within the bladder. No additional abnormal calcifications are seen. Slightly dilated left renal pelvis remains. Nonobstructing calculi are seen within both kidneys. Adrenal glands show no nodule. Pancreas is within normal limits. Cholesterol gallstones are seen within the gallbladder. Aorta shows atherosclerotic change. Mild areas of ectasia are seen within the abdominal aorta. 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 No mesenteric abnormalities are seen. Diverticuli are noted within the descending colon and sigmoid colon without evidence of diverticulitis. Prostate gland is somewhat enlarged. No free fluid is seen. Bone window settings were reviewed which show stable degenerative change within the spine. Impression: 1. Previous left ureteral stone has moved more distal on current exam and is either within the bladder or within the very distal UVJ. 2. Small calcification within the bladder is seen compatible with previous stone. 3. Several nonobstructing calculi are seen within both kidneys. Diagnostic code #3 This report was dictated in [place] Standard Time
[2019-09-21 17:47] VITALS: BP 136/83; PULSE 86
== END 2019-09-21 17:40 | disposition home or self-care (01) ==
LOC: JD.ED 14:44
DX: N20.0 Calculus of kidney (principal); I25.2 Old myocardial infarction; I25.10 Atherosclerotic heart disease of native coronary artery without angina pectoris; I10 Essential (primary) hypertension; E78.00 Pure hypercholesterolemia, unspecified; Z79.02 Long term (current) use of antithrombotics/antiplatelets; Z79.82 Long term (current) use of aspirin; Z79.899 Other long term (current) drug therapy
CPT/HCPCS: 74176; 81001; 96361; 96374; 96375; 99284; J1170; J1885; J2405; J7030; 99283

== ENCOUNTER 2019-09-23 14:56 | Emergency (ER) | payer BC ==
[2019-09-23 15:30] VITALS: BP 167/108; PULSE 90
[2019-09-23] MEDS ORDERED: Ondansetron 4 MG/2 ML SDV IVPUSH ONE (15:35)
[2019-09-23] MEDS ORDERED: Sodium Chloride 0.9% 10 ML Syringe FLUSH PRN (15:35)
[2019-09-23] MEDS ORDERED: HYDROmorphone 0.5 MG/0.5 ML Syringe IVPUSH ONE (15:36)
[2019-09-23] MEDS ORDERED: Ketorolac 30 MG/ML SDV IVPUSH ONE (15:36)
[2019-09-23] MEDS ORDERED: Sodium Chloride 0.9% 1,000 ML IV SCH (15:45)
[2019-09-23] MEDS ORDERED: HYDROmorphone 0.5 MG/0.5 ML Syringe IM STA (16:00)
[2019-09-23] MEDS ORDERED: Ketorolac 30 MG/ML SDV IM STA (16:01)
[2019-09-23] MEDS ORDERED: Ondansetron 4 MG Tab.DIS PO STA (16:02)
--- NOTE | 2019-09-23 19:21 | CT ---
CT abdomen and pelvis Technique: Multiple axial sections were obtained from above the dome of the diaphragm inferiorly through the pubic symphysis. Intravenous contrast not utilized. Study has been a ureteral stone protocol. Comparison: Previous CT abdomen and pelvis exam of 09/21/19. Findings: Small calcification is noted within the bladder at the UVJ measuring approximately 3 mm. This is in similar location to the earlier study and may represent a persistent stone within the very distal UVJ. Other calcification is seen within the bladder which has moved from prior study compatible with old stone that is passed. No additional ureteral calculi are seen. Small nonobstructing calculi are seen within both kidneys. Left ureter remains slightly prominent in size. Visualized lung bases show nothing acute. Liver contains no focal abnormality. Spleen appears within normal limits. Adrenal glands show no nodule. Gallbladder shows multiple gallstones. Pancreas shows no discrete abnormality. Aorta shows atherosclerotic calcification. Minimal aneurysmal dilatation is noted distally within the abdominal aorta which is stable. No retroperitoneal adenopathy or mesenteric abnormalities are seen. No pelvic mass or adenopathy is seen. Prostate gland remains slightly enlarged. Appendix is not visualized with certainty. No free fluid or inflammatory change is seen. Bone window settings were reviewed which shows stable degenerative change. Impression: 1. 3 mm calcification in similar location to prior study within the bladder presumably representing a persistent obstructing stone within the very distal UVJ. Mild prominence of the left ureter is again noted. 2. Other calcification within the bladder seen which moves between current and previous study compatible with old passed stone. 3. Multiple nonobstructing calculi are seen within both kidneys. 4. Other stable findings as noted above. Diagnostic code #3 Study was dictated in [place] Standard Time
--- NOTE | 2019-09-23 19:30 | EDM.PDOC ---
ED HPI GENERAL MEDICAL PROBLEM - General Chief Complaint: Flank Pain Stated Complaint: KIDNEY STONE Time Seen by Provider: 09/23/19 15:27 Source of Information: Reports: Patient History Limitations: Reports: No Limitations - History of Present Illness INITIAL COMMENTS - FREE TEXT/NARRATIVE: The patient presents with left flank pain. This has been going on for a few days. He was seen her now 3 times. He had a CT done 2 of the times and he has 2 kidney stones in the left ureter. They were near the bladder the last time. He has no dysuria or hematuria any more. He has no fever, chills or cough. He has no chest pain or shortness of breath. There were other stones in his kidneys. Onset: Gradual Duration: Day(s): Location: Reports: Abdomen, Back Quality: Reports: Sharp Severity: Severe Improves with: Reports: None Worsens with: Reports: None Associated Symptoms: Reports: Nausea/Vomiting. Denies: Chest Pain, Cough, Fever /Chills, Headaches, Shortness of Breath Left Flank Pain Score (Numeric/FACES): 10 - Related Data Allergies Allergy/AdvReac Type Severity Reaction Status Date / Time No Known Allergies Allergy Verified 09/21/19 15:06 Home Meds: Home Meds Dutasteride [Avodart] 0.5 mg PO DAILY 04/05/17 [History] Aspirin [Calpine Aspirin] 81 mg PO DAILY 09/13/18 [History] Metoprolol Succinate 25 mg PO DAILY 09/13/18 [History] Rosuvastatin [Crestor] 20 mg PO DAILY 09/13/18 [History] Clopidogrel [Plavix] 75 mg PO DAILY 09/19/18 [History] Multivitamin [Multivitamins] 1 tab PO DAILY 09/19/18 [History] Hydrocodone/Acetaminophen [Hydrocodon-Acetaminophen 5-325] 1 - 2 each PO Q4HR PRN #15 tablet 09/19/19 [Rx] Tamsulosin [Tamsulosin 24 Hr] 0.4 mg PO DAILY #7 cap.er 09/19/19 [Rx] Tamsulosin HCl [Flomax] 0.4 mg PO BID #14 cap.er.24h 09/23/19 [Rx] traMADol [Ultram] 50 - 100 mg PO Q6H PRN #20 tab 09/23/19 [Rx] Past Medical History Cardiovascular History: Reports: CAD, High Cholesterol, Hypertension, DC Genitourinary History: Reports: BPH, Renal Calculus Musculoskeletal History: Reports: Arthritis, Back Pain, Chronic Other Musculoskeletal History: lower back pain - Past Surgical History HEENT Surgical History: Reports: Cataract Surgery, Oral Surgery Cardiovascular Surgical History: Reports: Coronary Artery Stent Neurological Surgical History: Reports: Lumbar Spine Musculoskeletal Surgical History: Reports: Amputation, Other (See Below) Social & Family History - Tobacco Use Smoking Status *Q: Never Smoker - Caffeine Use Caffeine Use: Reports: Coffee - Recreational Drug Use Recreational Drug Use: No - Living Situation & Occupation Living situation: Reports: , with Spouse Occupation: Employed (Owns a body shop) ED ROS GENERAL - Review of Systems Review Of Systems: See Below Constitutional: Reports: No Symptoms HEENT: Reports: No Symptoms Respiratory: Reports: No Symptoms Cardiovascular: Reports: No Symptoms Endocrine: Reports: No Symptoms GI/Abdominal: Reports: Abdominal Pain, Nausea, Vomiting : Reports: Flank Pain Musculoskeletal: Reports: Back Pain ED EXAM, RENAL/ - Physical Exam Exam: See Below Exam Limited By: No Limitations General Appearance: Alert, No Apparent Distress Ears: Normal External Exam Nose: Normal Inspection Head: Atraumatic, Normocephalic Neck: Normal Inspection Respiratory/Chest: No Respiratory Distress, Lungs Clear, Normal Breath Sounds Cardiovascular: Regular Rate, Rhythm, No Edema, No Murmur GI/Abdominal: Soft, No Organomegaly, No Mass, Tender (Mild tenderness to the left abdomen) Back Exam: CVA Tenderness (L) Extremities: Normal Inspection Neurological: Alert, Oriented, No Motor/Sensory Deficits Course - Vital Signs Last Recorded V/S: Last Vital Signs Temp 98.0 F 09/23/19 15:25 Pulse 90 09/23/19 15:25 Resp 16 09/23/19 15:25 BP 167/108 H 09/23/19 15:25 Pulse Ox 99 09/23/19 15:25 - Orders/Labs/Meds Orders: Active Orders 24 hr Category Date Time Status Peripheral IV Care [RC] . DIRECTED Care 09/23/19 15:36 Active UA W/MICROSCOPIC [URIN] Stat Lab 09/23/19 15:35 Ordered Sodium Chloride 0.9% [Saline Flush] Med 09/23/19 15:35 Active 10 ml FLUSH ASDIRECTED PRN ED Antiemetic Medication Reflex [OM.PC] Stat Oth 09/23/19 15:36 Ordered Peripheral IV Insertion Adult [OM.PC] Stat Oth 09/23/19 15:35 Ordered Medication Orders Sodium Chloride (Saline Flush) 10 ml FLUSH ASDIRECTED PRN PRN Reason: Keep Vein Open Labs: Laboratory Tests 09/23/19 09/23/19 Range/Units 17:04 17:04 WBC 17.97 H (4.23-9.07) K/mm3 RBC 5.34 (4.63-6.08) M/mm3 Hgb 15.1 (13.7-17.5) gm/dl Hct 47.1 (40.1-51.0) % MCV 88.2 (79.0-92.2) fl MCH 28.3 (25.7-32.2) pg MCHC 32.1 L (32.2-35.5) g/dl RDW Std Deviation 42.0 (35.1-43.9) fL Plt Count 217 D (163-337) K/mm3 MPV 8.9 L (9.4-12.3) fl Neut % (Auto) 82.5 H (34.0-67.9) % Lymph % (Auto) 9.8 L (21.8-53.1) % [place] % (Auto) 6.9 (5.3-12.2) % Eos % (Auto) 0.1 L (0.8-7.0) Baso % (Auto) 0.1 (0.1-1.2) % Neut # (Auto) 14.83 H (1.78-5.38) K/mm3 Lymph # (Auto) 1.76 (1.32-3.57) K/mm3 [place] # (Auto) 1.24 H (0.30-0.82) K/mm3 Eos # (Auto) 0.01 L (0.04-0.54) K/mm3 Baso # (Auto) 0.02 (0.01-0.08) K/mm3 Manual Slide Review Normal smear Sodium 141 (136-145) mEq/L Potassium 4.9 (3.5-5.1) mEq/L Chloride 102 (98-107) mEq/L Carbon Dioxide 30 (21-32) mEq/L Anion Gap 13.9 (5-15) BUN 35 H (7-18) mg/dL Creatinine 1.6 H (0.7-1.3) mg/dL Est Cr Clr Drug Dosing 43.79 mL/min Estimated GFR (MDRD) 43 (>60) mL/min BUN/Creatinine Ratio 21.9 H (14-18) Glucose 106 (83-115) mg/dL Calcium 8.9 (8.5-10.1) mg/dL Total Bilirubin 0.3 (0.2-1.0) mg/dL AST 13 L (15-37) U/L ALT 21 (16-63) U/L Alkaline Phosphatase 86 (46-116) U/L Total Protein 7.9 (6.4-8.2) g/dl Albumin 3.3 L (3.4-5.0) g/dl Globulin 4.6 gm/dL Albumin/Globulin Ratio 0.7 L (1-2) Lipase 65 L (73-393) U/L Meds: Medications Generic Name Dose Route Start Last Admin Trade Name Freq PRN Reason Stop Dose Admin Sodium Chloride 10 ml 09/23/19 15:35 Saline Flush FLUSH ASDIRECTED PRN Keep Vein Open Discontinued Medications Generic Name Dose Route Start Last Admin Trade Name Freq PRN Reason Stop Dose Admin Hydromorphone HCl 0.5 mg 09/23/19 15:36 Dilaudid IVPUSH 09/23/19 15:37 ONETIME ONE Hydromorphone HCl 0.5 mg 09/23/19 16:00 09/23/19 16:08 Dilaudid IM 09/23/19 16:01 0.5 mg ONETIME STA Administration Sodium Chloride 1,000 mls @ 125 mls/hr 09/23/19 15:45 Normal Saline IV ASDIRECTED AL Ketorolac Tromethamine 30 mg 09/23/19 15:36 Toradol IVPUSH 09/23/19 15:37 ONETIME ONE Ketorolac Tromethamine 30 mg 09/23/19 16:01 09/23/19 16:12 Toradol IM 09/23/19 16:02 30 mg ONETIME STA Administration Ondansetron HCl 4 mg 09/23/19 15:35 Zofran IVPUSH 09/23/19 15:36 ONETIME ONE Ondansetron HCl 4 mg 09/23/19 16:02 09/23/19 16:10 Zofran Odt PO 09/23/19 16:03 4 mg ONETIME STA Administration - Re-Assessments/Exams Free Text/Narrative Re-Assessment/Exam: 09/23/19 19:34 I did order an IV, labs, UA and something for pain. We could not get an IV so I ordered dilaudid and toradol IM. His WBC was elevated at 17.97. His creatinine was elevated at 1.6. His lipase was low at 65. There was a long delay getting a CT and it showed 3mm calcification in similar location to prior study within the bladder presumably representing a persistent obstructing stone within the vin distal UVJ. Mild prominence of the left ureter is again noted. Other calcification within the bladder seen which moved between current and previous study compatible with old passed stone. Multiple nonobstructing calculi are seen within both kidneys. Other stable findings as noted above. The patient could no urinate for me. He will not give me a urine sample. He wants to leave. Departure - Departure Time of Disposition: 19:30 Disposition: Home, Self-Care 01 Condition: Good Clinical Impression: Kidney stone, Kidney stone on left side - Discharge Information *PRESCRIPTION DRUG MONITORING PROGRAM REVIEWED*: No *COPY OF PRESCRIPTION DRUG MONITORING REPORT IN PATIENT RAFAEL: No Prescriptions: Tamsulosin HCl [Flomax] 0.4 mg PO BID #14 cap.er.24h traMADol [Ultram] 50 - 100 mg PO Q6H PRN #20 tab PRN Reason: Pain Referrals: Meggan Benavides NP [Primary Care Provider] - Domingo Terrazas MD [Ordering Only Provider] - 1 Week Forms: ED Department Discharge Additional Instructions: Drink plenty of fluids. Take the flomax 2 times per day. Take motrin as needed for pain or tylenol. If that does not help, try the tramadol. Follow up with Dr Terrazas. Please return if you are worse. Sepsis Event Note - Evaluation Sepsis Screening Result: No Definite Risk - Focused Exam Vital Signs: Vital Signs Temp Pulse Resp BP Pulse Ox 09/23/19 15:25 98.0 F 90 16 167/108 H 99 Date Exam was Performed: 09/23/19 Time Exam was Performed: 19:30 - My Orders Last 24 Hours: My Active Orders 09/23/19 15:35 UA W/MICROSCOPIC [URIN] Stat Sodium Chloride 0.9% [Saline Flush] 10 ml FLUSH ASDIRECTED PRN Peripheral IV Insertion Adult [OM.PC] Stat 09/23/19 15:36 Peripheral IV Care [RC] . DIRECTED ED Antiemetic Medication Reflex [OM.PC] Stat - Assessment/Plan Last 24 Hours: My Active Orders 09/23/19 15:35 UA W/MICROSCOPIC [URIN] Stat Sodium Chloride 0.9% [Saline Flush] 10 ml FLUSH ASDIRECTED PRN Peripheral IV Insertion Adult [OM.PC] Stat 09/23/19 15:36 Peripheral IV Care [RC] . DIRECTED ED Antiemetic Medication Reflex [OM.PC] Stat
== END 2019-09-23 19:35 | disposition home or self-care (01) ==
LOC: JD.ED 14:56
DX: N20.0 Calculus of kidney (principal); I25.10 Atherosclerotic heart disease of native coronary artery without angina pectoris; E78.00 Pure hypercholesterolemia, unspecified; I10 Essential (primary) hypertension; I25.2 Old myocardial infarction; Z79.82 Long term (current) use of aspirin
CPT/HCPCS: 36415; 74176; 80053; 83690; 85025; 96372; 99284; A9270; J1170; J1885; 99283

== ENCOUNTER 2019-10-24 13:01 | Emergency (ER) | payer BC ==
[2019-10-24 13:41] VITALS: BP 131/77
[2019-10-24] MEDS ORDERED: HYDROmorphone 0.5 MG/0.5 ML Syringe IVPUSH ONE (13:52)
[2019-10-24] MEDS ORDERED: Metoclopramide 10 MG/2 ML SDV IVPUSH ONE (13:53)
[2019-10-24] MEDS ORDERED: Sodium Chloride 0.9% 1,000 ML IV SCH (14:00)
--- NOTE | 2019-10-24 14:01 | EDM.PDOC ---
ED HPI GENERAL MEDICAL PROBLEM - General Chief Complaint: Upper Extremity Injury/Pain Stated Complaint: RIGHT SHOULDER INJURY Time Seen by Provider: 10/24/19 13:50 Source of Information: Reports: Patient History Limitations: Reports: No Limitations - History of Present Illness INITIAL COMMENTS - FREE TEXT/NARRATIVE: 74-year-old male presents to the ED after falling while walking across the parking lot on uneven ground. Trauma alert was called on this patient. He states he fell directly onto his right shoulder and then struck the right side of his head on the pavement with no reported loss of consciousness. He is on Xarelto due to having 2 stents in his heart and being in atrial fibrillation. Patient hit his head in the right temporal aspect. He is complaining of diffuse right-sided neck pain and severe pain in his right anterior superior shoulder. Injury occurred within the last half hour. Onset: Today Onset Date: 10/24/19 Onset Time: 13:20 Duration: Minutes: Location: Reports: Head (Right temporalis head), Neck (Right neck), Upper Extremity, Right Quality: Reports: Ache (Right superior shoulder and proximal humerus), Throbbing Severity: Moderate Improves with: Reports: Rest Worsens with: Reports: Movement (He is unable to move like abduct or forward flex the right shoulder due to pain.) Context: Reports: Trauma (Tipped and fell while walking across uneven surface on the parking [place] at the mall[place] 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 (see below) (None.) Right Shoulder Pain Score (Numeric/FACES): 10 - Related Data Allergies Allergy/AdvReac Type Severity Reaction Status Date / Time No Known Allergies Allergy Verified 10/24/19 13:37 Home Meds: Home Meds Dutasteride [Avodart] 0.5 mg PO DAILY 04/05/17 [History] Aspirin [Kohler Aspirin] 81 mg PO DAILY 09/13/18 [History] Metoprolol Succinate 25 mg PO DAILY 09/13/18 [History] Rosuvastatin [Crestor] 20 mg PO DAILY 09/13/18 [History] Clopidogrel [Plavix] 75 mg PO DAILY 09/19/18 [History] Multivitamin [Multivitamins] 1 tab PO DAILY 09/19/18 [History] Hydrocodone/Acetaminophen [Hydrocodon-Acetaminophen 5-325] 1 - 2 each PO Q4HR PRN #15 tablet 09/19/19 [Rx] Tamsulosin [Tamsulosin 24 Hr] 0.4 mg PO DAILY #7 cap.er 09/19/19 [Rx] Tamsulosin HCl [Flomax] 0.4 mg PO BID #14 cap.er.24h 09/23/19 [Rx] traMADol [Ultram] 50 - 100 mg PO Q6H PRN #20 tab 09/23/19 [Rx] Acetaminophen/HYDROcodone [Wilson 325-5 MG] 1 - 2 tab PO Q4H PRN #20 tablet 10/23 [Rx] Past Medical History Cardiovascular History: Reports: CAD, High Cholesterol, Hypertension, [place] Genitourinary History: Reports: BPH, Renal Calculus (Problems with renal calculi as of late. Apparently still has one calculus in his bladder which is not yet passed.) Musculoskeletal History: Reports: Arthritis, Back Pain, Chronic Other Musculoskeletal History: lower back pain - Past Surgical History HEENT Surgical History: Reports: Cataract Surgery, Oral Surgery Cardiovascular Surgical History: Reports: Coronary Artery Stent Neurological Surgical History: Reports: Lumbar Spine Musculoskeletal Surgical History: Reports: Amputation, Other (See Below) Social & Family History - Tobacco Use Smoking Status *Q: Never Smoker - Caffeine Use Caffeine Use: Reports: Coffee - Recreational Drug Use Recreational Drug Use: No - Living Situation & Occupation Living situation: Reports: , with Spouse Occupation: Employed (Owns a body shop) Review of Systems - Review of Systems Review Of Systems: See Below Constitutional: Reports: No Symptoms Eyes: Reports: Glasses Ears: Reports: No Symptoms Nose: Reports: No Symptoms Mouth/Throat: Reports: No Symptoms Respiratory: Reports: No Symptoms Cardiovascular: Reports: No Symptoms, Other (History of coronary disease with [place] a year ago.) GI/Abdominal: Reports: No Symptoms Genitourinary: Reports: Other (Amando frequency with nocturia x3. Known BPH.) Musculoskeletal: Reports: Back Pain, Joint Pain Skin: Reports: Bruising (Bruising and skin abrasion to his right fourth dorsal finger.) Neurological: Reports: No Symptoms Psychiatric: Reports: No Symptoms ED EXAM, GENERAL - Physical Exam Exam: See Below Exam Limited By: No Limitations General Appearance: Alert, WD/WN, Moderate Distress, Other (BP is 09/13/1976 pulse is 91 and sinus respiratory is 14 with O2 sats of 99% on room air) Eye Exam: Bilateral Eye: Normal Inspection, PERRL Throat/Mouth: Normal Inspection, Normal Lips, Normal Oropharynx Head: Other (No abrasions. Small hematoma less than 2 cm.) Neck: Normal Inspection, Limited Range of Motion, Tender Lateral (In the right lateral neck with decreased flexion and left lateral rotation and flexion). No : Supple Respiratory/Chest: No Respiratory Distress, Lungs Clear, Normal Breath Sounds, No Accessory Muscle Use, Other Cardiovascular: Normal Peripheral Pulses (No pain on firm compression of his ribs.), Regular Rate, Rhythm, No Edema, No Gallop, No Murmur, No Rub Peripheral Pulses: 2+: Posterior Tibial (L), Posterior Tibial (R), Dorsalis Pedis (L), Dorsalis Pedis (R) GI/Abdominal: Normal Bowel Sounds, Soft, Non-Tender, No Organomegaly, No Distention Back Exam: Normal Inspection, Full Range of Motion. No: CVA Tenderness (L), CVA Tenderness (R) Extremities: Other (Denies significant pain superior aspect of his right shoulder and appears to have a separation of the acromioclavicular joint clinically. He has inability to forward flex or to abduct the arm at the shoulder. There is also some pain in the proximal humerus with pronation supination at the elbow. He has ecchymoses on both upper extremities as he is on Xarelto chronically. He has a superficial abrasion to his right dorsal foot ulnar fourth finger that will need dressing.). No: Normal Inspection Neurological: Alert, Oriented, CN II-XII Intact, Normal Cognition Psychiatric: Normal Affect, Normal Mood Skin Exam: Warm, Dry, Intact, Normal Color, No Rash Course - Vital Signs Last Recorded V/S: Last Vital Signs Temp 36.3 C 10/24/19 13:37 Pulse 91 10/24/19 13:37 Resp 14 10/24/19 13:37 BP 131/77 10/24/19 13:37 Pulse Ox 99 10/24/19 13:37 - Orders/Labs/Meds Orders: Active Orders 24 hr Category Date Time Status Humerus Rt [CR] Stat Exams 10/24/19 13:55 Taken Shoulder Comp Rt [CR] Stat Exams 10/24/19 13:54 Taken Durable Medical Equipment for Discharge [DME for Oth 10/24/19 15:11 Ordered Discharge] [COMM] Stat Meds: Medications Discontinued Medications Generic Name Dose Route Start Last Admin Trade Name Mary Ellen PRN Reason Stop Dose Admin Hydromorphone HCl 0.5 mg 10/24/19 13:52 10/24/19 14:43 Dilaudid IVPUSH 10/24/19 13:53 Not Given ONETIME ONE Hydromorphone HCl 0.5 mg 10/24/19 14:17 10/24/19 14:23 Dilaudid IM 10/24/19 14:18 0.5 mg ONETIME ONE Administration Sodium Chloride 1,000 mls @ 125 mls/hr 10/24/19 14:00 Normal Saline IV ASDIRECTED [facility] Metoclopramide HCl 10 mg 10/24/19 13:53 10/24/19 14:43 Reglan IVPUSH 10/24/19 13:54 Not Given ONETIME ONE Metoclopramide HCl 10 mg 10/24/19 14:17 10/24/19 14:23 Reglan IM 10/24/19 14:18 10 mg ONETIME ONE Administration - Radiology Interpretation Free Text/Narrative:: 74-year-old male presents to the ED after tripping and falling on uneven ground [place]. He fell directly onto his right shoulder and has severe pain superior aspect of the right shoulder clinically I think suspect he has an AC joint separation. However he does have some pain in his proximal humerus as well. He did strike the right side of his head hard on the pavement and he is on Xarelto and he has pain throughout the right side of his neck. Therefore he will have CT head and CT of his cervical spine as well as three-view x-rays of his right shoulder and an x-ray of his humerus as well. IV will be normal saline at 150 mils per hour. Given Dilaudid 0.5 mg IV for pain relief with Reglan 5 mg IV. - Re-Assessments/Exams Free Text/Narrative Re-Assessment/Exam: 10/24/19 15:03 CT of the head reveals no intracranial bleeding or mass-effect and no skull fractures are identified. Ventricles along with the basal cisterns and sulci over the convexities are within normal limits for the patient 's age. No midline shift or mass-effect is identified. CT of the cervical spine reveals mild disc space narrowing at C3-4 level and C4-C5 level. Severe disc space narrowing is noted at the C5-6 level and at the C6-7 level. Endplate concavity is noted within the superior endplate of T1 which is most likely chronic. Scattered anterior endplate osteophytes are seen scattered degenerative apophyseal changes are seen throughout the cervical spine there is mild left-sided neuroforaminal stenosis noted at the C3-4 level. Moderate to severe bilateral neural foraminal stenosis is noted at the C5-6 level and mild left-sided neuroforaminal stenosis noted at the C6-7 level. No central canal stenosis is identified. No fractures are identified and no abnormal subluxation is seen. Degenerative spurring is noted within the uncovertebral joints at C5-6 and C6-7 levels. X-rays of the right humerus do not reveal any fractures. The humeral head is somewhat further posterior than 1 anticipate but on the lateral view of the shoulder it appears to be in normal anatomical position without evidence of posterior dislocation. He does have a complete separation of the acromioclavicular joint on the right side without any fractures identified. Treatment will be placement in a sling and swath. This will be needed for about 3 weeks. Ice pack to the area for 1/2-hour out of every 4 hours today and tomorrow. Pain medicine as required. First hydrocodone tablets as they have worked well for him in the past. Prescription written for Wilson 5 325 mg strength 1 or 2 every 4-6 hours necessary x20 tablets. We will have him follow- up with personal physician in 10 days time Departure - Departure Time of Disposition: 15:13 Disposition: Home, Self-Care 01 Condition: Fair Clinical Impression: Acromioclavicular joint separation Qualifiers: Encounter type: initial encounter Laterality: right Qualified Code(s): S43.101A - Unspecified dislocation of right acromioclavicular joint, initial encounter - Discharge Information *PRESCRIPTION DRUG MONITORING PROGRAM REVIEWED*: Not Applicable *COPY OF PRESCRIPTION DRUG MONITORING REPORT IN PATIENT RAFAEL: Not Applicable Prescriptions: Acetaminophen/HYDROcodone [Wilson 325-5 MG] 1 - 2 tab PO Q4H PRN #20 tablet PRN Reason: Rt shoulder pain Instructions: Acromioclavicular Separation Referrals: Meggan Benavides NP [Primary Care Provider] - Forms: ED Department Discharge Additional Instructions: Evaluation in the emergency room today in regards to a trip and fall over irregular surface in the pavement of the parking lot. This caused you to fall directly onto your right shoulder creating an injury to the acromioclavicular joint. You also banged the right side of your head fairly hard in the pavement and you are on blood thinners i.e. Xarelto. Scan of the brain was carried out and no skull fractures were identified and no intracranial bleeding or mass- effect were identified. Similarly you were having significant right-sided neck pain from your fall and CT scan reveals no broken bones but does show advanced degenerative arthritic change at multiple levels in the neck which you are already aware of. Particularly the nerves on the left side of the neck are being slowly squeezed by arthritis growing around the nerves. This will create pain radiating down your left arm at times. X-rays of your right upper humerus or arm bones did not reveal any broken bones or dislocated shoulder. X-rays of the shoulder reveal the complete separation or what we call grade 3 separation of the acromioclavicular joint. This is due to torn ligaments in the upper anterior chest. This does not require surgical repair and will heal over the next 3 to 4 weeks. Treatment is sling and swath for the next 3 weeks and then to start a range of motion exercise program. I suggest follow-up with your personal care physician in 10 days time and then a referral to physiotherapy after 3 weeks are up. In the meantime ice pack to the area 1/2-hour out of every 4 hours for the next 2 days may help eliminate some of the swelling as you are going to swell and bruise quite badly because of being on Xarelto. Pain medication is hydrocodone 5/325 mg tabs 1 or 2 every 4-6 hours as needed for pain relief for the next 3 to 5 days. May need stool softener like MiraLAX powder 17 g or 1 scoop daily to prevent constipation which is caused by these pain pills. Follow-up with personal care physician if any further problems occur. Sepsis Event Note - Evaluation Sepsis Screening Result: No Definite Risk - Focused Exam Vital Signs: Vital Signs Temp Pulse Resp BP Pulse Ox 10/24/19 13:37 36.3 C 91 14 131/77 99 Date Exam was Performed: 10/24/19 Time Exam was Performed: 15:17 - My Orders Last 24 Hours: My Active Orders 10/24/19 13:54 Shoulder Comp Rt [CR] Stat 10/24/19 13:55 Humerus Rt [CR] Stat 10/24/19 15:11 Durable Medical Equipment for Discharge [DME for Discharge] [COMM] Stat - Assessment/Plan Last 24 Hours: My Active Orders 10/24/19 13:54 Shoulder Comp Rt [CR] Stat 10/24/19 13:55 Humerus Rt [CR] Stat 10/24/19 15:11 Durable Medical Equipment for Discharge [DME for Discharge] [COMM] Stat
[2019-10-24] MEDS ORDERED: HYDROmorphone 0.5 MG/0.5 ML Syringe IM ONE (14:17)
[2019-10-24] MEDS ORDERED: Metoclopramide 10 MG/2 ML SDV IM ONE (14:17)
--- NOTE | 2019-10-24 14:57 | CT ---
CT cervical spine Technique: Multiple axial sections were obtained from above C1 inferiorly to the mid T2 level. Reconstructed sagittal and coronal images were obtained. Comparison: No prior cervical spine imaging. Findings: Mild disc space narrowing is noted at C3-4 and C4-5. Severe disc space narrowing is noted at C5-6 and C6-7. Endplate concavity is noted within the superior endplate of T1 which is most likely chronic. Scattered anterior endplate osteophytes are seen. Scattered degenerative apophyseal change is seen. Mild left-sided neural foraminal stenosis is noted at C3-4. Moderate to severe bilateral neural foraminal stenosis is noted at C5-6. Mild left-sided neural foraminal stenosis at C6-7. No central canal stenosis is seen. No fracture is identified. No abnormal subluxation is seen. Degenerative spurring is noted within the uncovertebral joints at C5-6 and C6-7. Impression: 1. Multilevel degenerative change. 2. No acute fracture or abnormal subluxation is seen. Diagnostic code #2 This report was dictated in MDT
--- NOTE | 2019-10-24 14:57 | CT ---
Head CT Technique: Multiple axial sections through the brain were obtained. Intravenous contrast was not utilized. Comparison: No prior intracranial cranial imaging is available. Findings: Ventricles along with basal cisterns and sulci over the convexities are within normal limits for the patient's age. No abnormal parenchymal densities are seen. No evidence of intracranial hemorrhage. No midline shift or mass-effect is seen. Bone window settings were reviewed. No acute calvarial abnormality is appreciated. Visualized paranasal sinuses and mastoid sinuses show nothing acute. Impression: 1. Nothing acute is appreciated on noncontrast head CT exam. Diagnostic code #1 This report was dictated in MDT
[2019-10-24 16:27] VITALS: PULSE 88
--- NOTE | 2019-10-25 07:36 | CR ---
Right humerus: AP and lateral views of the right humerus were obtained. Comparison: No prior humerus study. Acromioclavicular separation is noted within the right shoulder. No fracture or other bony abnormality is appreciated. Impression: 1. Right acromioclavicular separation. 2. No other acute finding is seen on right humerus exam. Diagnostic code #3 This report was dictated in MDT
--- NOTE | 2019-10-25 07:36 | CR ---
Right shoulder: Three views of the right shoulder were obtained. Comparison: No prior right shoulder exam. Study correlated with humerus exam performed on the same day. Acromioclavicular separation is noted. Glenohumeral joint is within normal limits. No additional abnormality is appreciated. Impression: 1. Dislocated right acromioclavicular joint. Diagnostic code #3 This report was dictated in MDT
== END 2019-10-24 15:22 | disposition home or self-care (01) ==
LOC: JD.ED 13:01
DX: S43.101A Unspecified dislocation of right acromioclavicular joint, initial encounter (principal); I25.10 Atherosclerotic heart disease of native coronary artery without angina pectoris; E78.00 Pure hypercholesterolemia, unspecified; I10 Essential (primary) hypertension; I25.2 Old myocardial infarction; M19.90 Unspecified osteoarthritis, unspecified site; Z79.82 Long term (current) use of aspirin; Z79.899 Other long term (current) drug therapy; Z79.02 Long term (current) use of antithrombotics/antiplatelets; Z79.01 Long term (current) use of anticoagulants; W01.0XXA Fall on same level from slipping, tripping and stumbling without subsequent striking against object, initial encounter; Y92.481 Parking lot as the place of occurrence of the external cause
CPT/HCPCS: 70450; 72125; 73030; 73060; 99284; J1170; J2765

== ENCOUNTER 2020-08-20 06:44 | Emergency (ER) | payer OTHER, MEDICARE ==
[2020-08-20 06:54] VITALS: BP 117/80
--- NOTE | 2020-08-20 07:02 | EDM.PDOC ---
ED HPI GENERAL MEDICAL PROBLEM - General Chief Complaint: Chest Pain Stated Complaint: CHEST PAIN Time Seen by Provider: 08/20/20 07:02 - History of Present Illness INITIAL COMMENTS - FREE TEXT/NARRATIVE: 75-year-old male presents the emergency room with chest pain. Patient had chest pain that started around midnight with no apparent activity. This waxed and waned through the morning. The patient drank some 7-Up belched and it got better. He describes the pain is more of a burning pain across his lower chest and upper abdomen. The last time the patient had chest pain was a couple years ago and ended up having a couple stents placed. He is no longer on antiplatelet therapy other than aspirin. The patient states he took 5 baby aspirin through the course of the morning. At this time the patient is pain- free. He denies any other complaints. He has significant coronary risk factors including hypertension hyperlipidemia and prior SD prior to his stents. - Related Data Allergies Allergy/AdvReac Type Severity Reaction Status Date / Time No Known Allergies Allergy Verified 08/20/20 06:54 Home Meds: Home Meds Dutasteride [Avodart] 0.5 mg PO DAILY 04/05/17 [History] Aspirin [[place] Aspirin] 81 mg PO DAILY 09/13/18 [History] Metoprolol Succinate 25 mg PO DAILY 09/13/18 [History] Rosuvastatin [Crestor] 20 mg PO DAILY 09/13/18 [History] Clopidogrel [Plavix] 75 mg PO DAILY 09/19/18 [History] Multivitamin [Multivitamins] 1 tab PO DAILY 09/19/18 [History] Hydrocodone/Acetaminophen [Hydrocodone-Acetamin 5-325 mg] 1 - 2 each PO Q4HR PRN #15 tablet 09/19/19 [Rx] Tamsulosin [Tamsulosin 24 Hr] 0.4 mg PO DAILY #7 cap.er 09/19/19 [Rx] Tamsulosin HCl [Flomax] 0.4 mg PO BID #14 cap.er.24h 09/23/19 [Rx] traMADol [Ultram] 50 - 100 mg PO Q6H PRN #20 tab 09/23/19 [Rx] Acetaminophen/HYDROcodone [[place] 325-5 MG] 1 - 2 tab PO Q4H PRN #20 tablet 10/24/19 [Rx] Past Medical History Cardiovascular History: Reports: CAD, High Cholesterol, Hypertension, SD Genitourinary History: Reports: BPH, Renal Calculus Musculoskeletal History: Reports: Arthritis, Back Pain, Chronic Other Musculoskeletal History: lower back pain - Past Surgical History HEENT Surgical History: Reports: Cataract Surgery, Oral Surgery Cardiovascular Surgical History: Reports: Coronary Artery Stent Neurological Surgical History: Reports: Lumbar Spine Musculoskeletal Surgical History: Reports: Amputation, Other (See Below) Social & Family History - Tobacco Use Tobacco Use Status *Q: Never Tobacco User - Caffeine Use Caffeine Use: Reports: Coffee - Recreational Drug Use Recreational Drug Use: No - Living Situation & Occupation Living situation: Reports: , with Spouse Occupation: Employed (Owns a body shop) ED ROS GENERAL - Review of Systems Review Of Systems: See Below Constitutional: Reports: No Symptoms HEENT: Reports: No Symptoms Respiratory: Reports: No Symptoms Cardiovascular: Reports: Chest Pain Endocrine: Reports: No Symptoms GI/Abdominal: Reports: No Symptoms. Denies: Constipation, Diarrhea, Nausea, Vomiting : Reports: No Symptoms Musculoskeletal: Reports: No Symptoms Neurological: Reports: No Symptoms ED EXAM, GENERAL - Physical Exam Exam: See Below Exam Limited By: No Limitations General Appearance: Alert, No Apparent Distress, Other (He is pain-free at the time of my exam) Head: Atraumatic, Normocephalic Neck: Normal Inspection, Supple, Non-Tender, Full Range of Motion Respiratory/Chest: No Respiratory Distress, Lungs Clear, Normal Breath Sounds Cardiovascular: Regular Rate, Rhythm, No Edema, No Murmur GI/Abdominal: Normal Bowel Sounds, Soft, Non-Tender Extremities: Normal Inspection, No Pedal Edema Neurological: Alert, Oriented, Normal Cognition #1 Interpretation EKG Date: 08/20/20 Rhythm: NSR Orange: Normal P-Wave: Present QRS: Normal ST-T: Normal QT: Normal Comparison: No Change (No change from his prior EKG on 08/30/2018 when he had his NonSTEMI) Course - Vital Signs Last Recorded V/S: Last Vital Signs Temp 36.6 C 08/20/20 06:46 Pulse 95 08/20/20 06:46 Resp 20 08/20/20 06:46 BP 117/80 08/20/20 06:46 Pulse Ox 96 08/20/20 06:46 - Orders/Labs/Meds Orders: Active Orders 24 hr Category Date Time Status EKG Documentation Completion [RC] ASDIRECTED Care 08/20/20 06:55 Active EKG 12 Lead [EK] Stat Ther 08/20/20 06:54 Ordered Labs: Laboratory Tests 08/20/20 08/20/20 08/20/20 Range/Units 07:08 07:08 07:08 WBC 8.55 (4.23-9.07) K/mm3 RBC 5.16 (4.63-6.08) M/mm3 Hgb 14.7 (13.7-17.5) gm/dl Hct 45.5 (40.1-51.0) % MCV 88.2 (79.0-92.2) fl MCH 28.5 (25.7-32.2) pg MCHC 32.3 (32.2-35.5) g/dl RDW Std Deviation 42.3 (35.1-43.9) fL Plt Count 124 L D (163-337) K/mm3 MPV 8.5 L (9.4-12.3) fl Neut % (Auto) 75.5 H (34.0-67.9) % Lymph % (Auto) 12.0 L (21.8-53.1) % [place] % (Auto) 11.8 (5.3-12.2) % Eos % (Auto) 0.1 L (0.8-7.0) Baso % (Auto) 0.1 (0.1-1.2) % Neut # (Auto) 6.45 H (1.78-5.38) K/mm3 Lymph # (Auto) 1.03 L (1.32-3.57) K/mm3 [place] # (Auto) 1.01 H (0.30-0.82) K/mm3 Eos # (Auto) 0.01 L (0.04-0.54) K/mm3 Baso # (Auto) 0.01 (0.01-0.08) K/mm3 PT 11.0 (9.7-12.0) SECONDS INR 1.03 APTT 33.8 H (21.7-31.4) SECONDS Sodium 136 (136-145) mEq/L Potassium 4.1 (3.5-5.1) mEq/L Chloride 101 (98-107) mEq/L Carbon Dioxide 25 (21-32) mEq/L Anion Gap 14.1 (5-15) BUN 19 H (7-18) mg/dL Creatinine 1.3 (0.7-1.3) mg/dL Est Cr Clr Drug Dosing 53.10 mL/min Estimated GFR (MDRD) 54 (>60) mL/min BUN/Creatinine Ratio 14.6 (14-18) Glucose 135 H (83-115) mg/dL Calcium 6.3 L D (8.5-10.1) mg/dL Total Bilirubin 0.4 (0.2-1.0) mg/dL AST 16 (15-37) U/L ALT 23 (16-63) U/L Alkaline Phosphatase 66 (46-116) U/L Troponin I < 0.017 (0.00-0.056) ng/mL Total Protein 6.7 (6.4-8.2) g/dl Albumin 3.0 L (3.4-5.0) g/dl Globulin 3.7 gm/dL Albumin/Globulin Ratio 0.8 L (1-2) 08/20/20 Range/Units 09:30 WBC (4.23-9.07) K/mm3 RBC (4.63-6.08) M/mm3 Hgb (13.7-17.5) gm/dl Hct (40.1-51.0) % MCV (79.0-92.2) fl MCH (25.7-32.2) pg MCHC (32.2-35.5) g/dl RDW Std Deviation (35.1-43.9) fL Plt Count (163-337) K/mm3 MPV (9.4-12.3) fl Neut % (Auto) (34.0-67.9) % Lymph % (Auto) (21.8-53.1) % [place] % (Auto) (5.3-12.2) % Eos % (Auto) (0.8-7.0) Baso % (Auto) (0.1-1.2) % Neut # (Auto) (1.78-5.38) K/mm3 Lymph # (Auto) (1.32-3.57) K/mm3 [place] # (Auto) (0.30-0.82) K/mm3 Eos # (Auto) (0.04-0.54) K/mm3 Baso # (Auto) (0.01-0.08) K/mm3 PT (9.7-12.0) SECONDS INR APTT (21.7-31.4) SECONDS Sodium (136-145) mEq/L Potassium (3.5-5.1) mEq/L Chloride (98-107) mEq/L Carbon Dioxide (21-32) mEq/L Anion Gap (5-15) BUN (7-18) mg/dL Creatinine (0.7-1.3) mg/dL Est Cr Clr Drug Dosing mL/min Estimated GFR (MDRD) (>60) mL/min BUN/Creatinine Ratio (14-18) Glucose (83-115) mg/dL Calcium (8.5-10.1) mg/dL Total Bilirubin (0.2-1.0) mg/dL AST (15-37) U/L ALT (16-63) U/L Alkaline Phosphatase (46-116) U/L Troponin I < 0.017 (0.00-0.056) ng/mL Total Protein (6.4-8.2) g/dl Albumin (3.4-5.0) g/dl Globulin gm/dL Albumin/Globulin Ratio (1-2) - Re-Assessments/Exams Free Text/Narrative Re-Assessment/Exam: 08/20/20 08:31 Patient's work-up thus far is unremarkable including negative troponin. I will repeat a troponin at 930. He is remaining symptom-free. 08/20/20 10:47 Second troponin negative. I discussed the situation the EKG findings and the work-up in general with Dr. Garnica on-call for Dr. Gorman. His recommendation is to have him call Dr. Gorman's office on Monday and schedule an appointment. 08/20/20 10:56 The patient does not believe he is taking Plavix anymore but it is still on his medication list. 08/20/20 10:56 Prior to discharge we did discuss the pros and cons of admission versus outpatient and the patient really insistent on going home. Departure - Departure Time of Disposition: 10:55 Disposition: Home, Self-Care 01 Clinical Impression: Chest pain Referrals: Lupe Guan MD [Primary Care Provider] - Forms: ED Department Discharge Additional Instructions: Return to the emergency room with any questions problems or worsening symptoms. Call Dr. Gorman's office and schedule an appointment. Try this afternoon if the office is closed call first thing Monday. Continue on your current medications. Sepsis Event Note (ED) - Evaluation Sepsis Screening Result: No Definite Risk - Focused Exam Vital Signs: Vital Signs Temp Pulse Resp BP Pulse Ox 08/20/20 06:46 36.6 C 95 20 117/80 96 - My Orders Last 24 Hours: My Active Orders 08/20/20 06:54 EKG 12 Lead [EK] Stat 08/20/20 06:55 EKG Documentation Completion [RC] ASDIRECTED - Assessment/Plan Last 24 Hours: My Active Orders 08/20/20 06:54 EKG 12 Lead [EK] Stat 08/20/20 06:55 EKG Documentation Completion [RC] ASDIRECTED
--- NOTE | 2020-08-20 08:18 | CR ---
Chest: Portable view of the chest was obtained. Comparison: Prior chest x-ray of 02/28/19. Heart size is normal. Tortuous thoracic aorta is seen. Lungs are clear with no acute parenchymal change. Bony structure shows nothing acute. Impression: 1. Nothing acute is seen on portable chest x-ray. Diagnostic code #2
--- NOTE | 2020-08-20 08:18 | CR ---
Chest: 2 views of the chest were obtained. Comparison: Prior chest x-ray performed earlier on the same day (7:03 AM). Heart size is normal. Tortuous thoracic aorta is seen. Lungs are clear with no acute parenchymal change. Bony structures appear within normal limits for the patient's age. Impression: 1. Nothing acute is seen on 2 view chest x-ray. Diagnostic code #1
[2020-08-20 11:06] VITALS: PULSE 88
== END 2020-08-20 11:05 | disposition home or self-care (01) ==
LOC: JD.ED 06:44
DX: R07.9 Chest pain, unspecified (principal); I25.10 Atherosclerotic heart disease of native coronary artery without angina pectoris; E78.00 Pure hypercholesterolemia, unspecified; I10 Essential (primary) hypertension; I25.2 Old myocardial infarction; N40.0 Benign prostatic hyperplasia without lower urinary tract symptoms; M19.90 Unspecified osteoarthritis, unspecified site; Z79.82 Long term (current) use of aspirin; Z79.02 Long term (current) use of antithrombotics/antiplatelets; Z79.899 Other long term (current) drug therapy
CPT/HCPCS: 36415; 71045; 71045-26; 71046; 71046-26; 80053; 84484; 85025; 85610; 85730; 93005; 93010; 99284; 99285-25

== ENCOUNTER 2021-06-08 16:36 | Emergency (ER) | payer OTHER, MEDICARE ==
[2021-06-08] MEDS ORDERED: HYDROmorphone 1 MG/ML Syringe IVPUSH STA (17:13)
[2021-06-08] MEDS ORDERED: Ondansetron 4 MG/2 ML SDV IVPUSH ONE (17:13)
[2021-06-08] MEDS ORDERED: Sodium Chloride 0.9% 1,000 ML IV ONE ×2 (17:13→21:40)
--- NOTE | 2021-06-08 17:25 | EDM.PDOC ---
<LaineKierra V - Last Filed: 06/10/21 08:08> ED HPI GENERAL MEDICAL PROBLEM - General Chief Complaint: Genitourinary Problem Stated Complaint: POSS KIDNEY STONES Time Seen by Provider: 06/08/21 17:12 Source of Information: Reports: Patient, RN Notes Reviewed History Limitations: Reports: No Limitations - History of Present Illness INITIAL COMMENTS - FREE TEXT/NARRATIVE: Patient is a 76-year-old male who presents to the ER for the evaluation of his possible right kidney stone. States that the pain started last night, came on very quick and strong. Does have a history of kidney stones and states this seems very similar. Was told at one point he had 3 stones within his right kidney that had not passed yet. He is wondering if one of them did not dislodge and is trying to pass. He has not taken any sort of pain medications at home as he "ran out". He is not having any fevers or chills, cough or shortness of breath or any sort of nausea/vomiting/diarrhea. Patient notes he is not peeing any blood. Right Flank Pain Score (Numeric/FACES): 10 - Related Data Allergies Allergy/AdvReac Type Severity Reaction Status Date / Time No Known Allergies Allergy Verified 06/08/21 17:03 Home Meds: Home Meds Aspirin [Hardeman Aspirin] 81 mg PO DAILY 09/13/18 [History] Multivitamin [Multivitamins] 1 tab PO DAILY 09/19/18 [History] Tamsulosin [Flomax] 0.4 mg PO DAILY #7 cap.er 09/19/19 [Rx] Losartan [Cozaar] 100 mg PO DAILY 08/28/20 [History] Metoprolol Succinate [Toprol XL] 50 mg PO DAILY 08/28/20 [History] Rosuvastatin [Crestor] 10 mg PO BEDTIME 08/28/20 [History] Furosemide 20 mg PO ASDIRECTED PRN 06/08/21 [History] Acetaminophen/oxyCODONE [Percocet 325-5 MG] 1 - 2 tab PO Q6H PRN #24 tab 06/09/21 [Rx] Ondansetron [Zofran ODT] 1 tab PO Q8H PRN #16 tab.dis 06/09/21 [Rx] Past Medical History HEENT History: Reports: Impaired Vision Cardiovascular History: Reports: CAD, High Cholesterol, Hypertension, [place], Stents Respiratory History: Reports: Pneumonia, Recurrent, Other (See Below) Other Respiratory History: +) COVID Genitourinary History: Reports: BPH, Renal Calculus Musculoskeletal History: Reports: Arthritis, Back Pain, Chronic, Neck Pain, Chronic Other Musculoskeletal History: discectomy Endocrine/Metabolic History: Reports: Diabetes, Type II - Infectious Disease History Infectious Disease History: Reports: Chicken Pox, Novel Coronavirus - Past Surgical History HEENT Surgical History: Reports: Cataract Surgery, Oral Surgery Cardiovascular Surgical History: Reports: Coronary Artery Stent Neurological Surgical History: Reports: Lumbar Spine Musculoskeletal Surgical History: Reports: Amputation, Other (See Below) Social & Family History - Tobacco Use Tobacco Use Status *Q: Never Tobacco User Second Hand Smoke Exposure: No - Caffeine Use Caffeine Use: Reports: Coffee - Recreational Drug Use Recreational Drug Use: No - Living Situation & Occupation Living situation: Reports: , with Spouse Occupation: Employed (Owns a body shop) ED ROS GENERAL - Review of Systems Review Of Systems: Comprehensive ROS is negative, except as noted in HPI. ED EXAM, RENAL/ - Physical Exam Exam: See Below Exam Limited By: No Limitations General Appearance: Alert, WD/WN, No Apparent Distress Respiratory/Chest: No Respiratory Distress, Lungs Clear, Normal Breath Sounds, No Accessory Muscle Use, Chest Non-Tender Cardiovascular: Normal Peripheral Pulses, Regular Rate, Rhythm, No Edema GI/Abdominal: Normal Bowel Sounds, Soft, Non-Tender, No Distention, No Mass Extremities: Normal Inspection, Normal Capillary Refill Neurological: Alert, Oriented, Normal Cognition, No Motor/Sensory Deficits Psychiatric: Normal Affect, Normal Mood Skin Exam: Warm, Dry, Intact, Normal Color, No Rash Course - Re-Assessments/Exams Free Text/Narrative Re-Assessment/Exam: 06/08/21 17:25 Patient presents to the ER for evaluation of his possible right kidney stone, we will go ahead and get a CT, get some labs, give him some fluids pain meds and nausea meds and reassess once labs and CT has been performed. 06/08/21 18:08 CT has been performed, and there does appear to be a kidney stone within the proximal right ureter, and one that does look suspicious for having dropped into the bladder. Patient's white count is elevated at 15.96, which could indicate possible infection ongoing as well. There was some perinephric stranding appreciated on the CT. Official radiology read is still pending. 06/08/21 22:[address] read did come back, there was a 4 mm obstructing stone within the proximal right ureter with inflammatory change seen around the ureter at that level, there were nonobstructing calculi seen within both kidneys and also a nonobstructing stone within the bladder. There were numerous incidental gallstones identified as well. The patient's COVID-19 screen did come back positive as well. I did discuss this patient's case with Dr. Terrazas at [facility] in [place], he did recommend that the patient be sent to a hospital that has urology, so he can have a stent placed in the morning; due to having an obstructed stone with resultant renal insufficiency and elevated WBC of over 14,000. Recommended giving IV fluids, flomax, pain meds and antibiotics overnight; However they were on diversion and could not accept care. Of note [facility] is on diversion, [facility] would not accept this gentleman for transfer, [facility] is not excepting anything other than STEMI's, traumas or strokes, he is on a wait list at [facility] for placement, and [facility] was on diversion. I have also called the [facility] in [facility] to see if he could possibly be transferred to their facility for ongoing management however I have not heard back. 06/08/21 23:[address] [facility] did call back, and they do not unfortunately place ureteral stents, but the hospitalist Dr. Lyons was able to talk with their urologist, Dr. Rios and Dr. Rios did suggest the possibility of finding any emergency room that has access to interventional radiology, to see if they would place a stent and have the patient discharged from the ER. They did suggest calling [facility] in [place]; I did call them but again they're on diversion and will not accept the patient for transfer. At this point in time efforts have been fairly futile to try to get this patient anywhere overnight, this may have to be resumed tomorrow morning. Case has been discussed with Dr. Marley, who will assume care for [facility]'s purposes. 06/10/21 08:11 Departure - Departure Disposition: Home, Self-Care 01 Clinical Impression: Ureterolithiasis, COVID-19 - Discharge Information Prescriptions: Acetaminophen/oxyCODONE [Percocet 325-5 MG] 1 - 2 tab PO Q6H PRN #24 tab PRN Reason: Pain (Severe 7-10) Ondansetron [Zofran ODT] 1 tab PO Q8H PRN #16 tab.dis PRN Reason: Nausea/Vomiting Instructions: COVID-19, Kidney Stones Referrals: Lupe Guan MD [Primary Care Provider] - Domingo Terrazas MD [Ordering Only Provider] - Forms: ED Department Discharge Additional Instructions: You were seen in the emergency room of right flank pain. Work-up in the ER included several blood tests, a urinalysis, a swab for the SARS-CoV-2 virus and influenza A + B viruses, and a CT of your abdomen and pelvis. Your swab for the SARS-CoV-2 virus returned positive, indicating that you have COVID-19. The CT scan found a 4 mm stone in your upper right ureter. Based on the size and location of the stone, you will most likely pass it on your own. We recommend that you take [id number] ibuprofen, 3 tablets (600 mg) every 8 hours, with food, [id number] initially, then as needed for discomfort. You may take 1 to 2 tablets of the prescription opioid Percocet up to every 6 hours, as needed for pain not relieved by ibuprofen. If you take Percocet, do not drive or operate heavy machinery for 12 hours afterwards. Percocet may cause constipation, so consider taking a stool softener. You may dissolve 1 tablet of the antinausea medicine Zofran on your tongue up to every 8 hours, as needed for nausea/vomiting. Stay adequately hydrated and strain all of your urine. It does not really matter what type of fluid you drink. If you capture the stone, take it to your doctor for analysis. If you fail to pass the stone within a week, please follow-up with the urologist Dr. Domingo Terrazas, in [place]. As discussed, it is imperative that you strictly isolate through 06/18/2021, at which time you should get retested. If you still test positive for the virus, you need to continue to isolate until you test negative. If any other problems, please do not hesitate to return to the ER. Sepsis Event Note (ED) - Evaluation Sepsis Screening Result: No Definite Risk <Paulo Marley - Last Filed: 06/13/21 08:20> Course - Vital Signs Last Recorded V/S: Last Vital Signs Temp 36.5 C 06/08/21 18:51 Pulse 94 06/09/21 07:54 Resp 18 06/09/21 07:54 BP 160/86 H 06/09/21 07:54 Pulse Ox 91 L 06/09/21 07:54 - Orders/Labs/Meds Labs: Laboratory Tests 06/08/21 06/08/21 06/08/21 Range/Units 17:20 17:20 18:16 WBC 15.96 H (4.23-9.07) K/mm3 RBC 5.55 (4.63-6.08) M/mm3 Hgb 15.7 D (13.7-17.5) gm/dl Hct 48.8 (40.1-51.0) % MCV 87.9 (79.0-92.2) fl MCH 28.3 (25.7-32.2) pg MCHC 32.2 (32.2-35.5) g/dl RDW Std Deviation 43.6 (35.1-43.9) fL Plt Count 205 (163-337) K/mm3 MPV 8.4 L (9.4-12.3) fl Neut % (Auto) 77.0 H (34.0-67.9) % Lymph % (Auto) 12.3 L (21.8-53.1) % [place] % (Auto) 10.0 (5.3-12.2) % Eos % (Auto) 0.1 L (0.8-7.0) Baso % (Auto) 0.2 (0.1-1.2) % Neut # (Auto) 12.29 H (1.78-5.38) K/mm3 Lymph # (Auto) 1.97 (1.32-3.57) K/mm3 [place] # (Auto) 1.60 H (0.30-0.82) K/mm3 Eos # (Auto) 0.01 L (0.04-0.54) K/mm3 Baso # (Auto) 0.03 (0.01-0.08) K/mm3 Manual Slide Review Abnormal smear Sodium 139 (136-145) mEq/L Potassium 4.1 (3.5-5.1) mEq/L Chloride 103 (98-107) mEq/L Carbon Dioxide 33 H (21-32) mEq/L Anion Gap 7.1 (5-15) BUN 27 H (7-18) mg/dL Creatinine 1.6 H (0.7-1.3) mg/dL Est Cr Clr Drug Dosing 41.19 mL/min Estimated GFR (MDRD) 42 (>60) mL/min BUN/Creatinine Ratio 16.9 (14-18) Glucose 122 H (70-99) mg/dL Lactic Acid (0.4-2.0) mmol/L Calcium 8.9 (8.5-10.1) mg/dL Total Bilirubin 0.6 (0.2-1.0) mg/dL AST 17 (15-37) U/L ALT 19 (16-63) U/L Alkaline Phosphatase 84 (46-116) U/L Total Protein 7.5 (6.4-8.2) g/dl Albumin 3.4 (3.4-5.0) g/dl Globulin 4.1 gm/dL Albumin/Globulin Ratio 0.8 L (1-2) Urine Color (Yellow) Urine Appearance (Clear) Urine pH (5.0-8.0) Ur Specific [place] (1.005-1.030) Urine Protein (Negative) Urine Glucose (UA) (Negative) Urine Ketones (Negative) Urine Occult Blood (Negative) Urine Nitrite (Negative) Urine Bilirubin (Negative) Urine Urobilinogen (0.2-1.0) Ur Leukocyte Esterase (Negative) Urine RBC (0-5) /hpf Urine WBC (0-5) /hpf Ur Squamous Epith Cells (0-5) /hpf Urine Bacteria (FEW) /hpf Urine Mucus (FEW) /hpf Influenza Type A RNA Cancelled Influenza Type B RNA Cancelled SARS-CoV-2 RNA (MOISE) Positive H (NEGATIVE) 06/08/21 06/08/21 06/09/21 Range/Units 19:18 21:20 05:40 WBC 14.68 H (4.23-9.07) K/mm3 RBC 5.30 (4.63-6.08) M/mm3 Hgb 15.1 (13.7-17.5) gm/dl Hct 46.7 (40.1-51.0) % MCV 88.1 (79.0-92.2) fl MCH 28.5 (25.7-32.2) pg MCHC 32.3 (32.2-35.5) g/dl RDW Std Deviation 43.2 (35.1-43.9) fL Plt Count 206 (163-337) K/mm3 MPV 8.5 L (9.4-12.3) fl Neut % (Auto) 79.4 H (34.0-67.9) % Lymph % (Auto) 11.4 L (21.8-53.1) % [place] % (Auto) 8.7 (5.3-12.2) % Eos % (Auto) 0.1 L (0.8-7.0) Baso % (Auto) 0.1 (0.1-1.2) % Neut # (Auto) 11.68 H (1.78-5.38) K/mm3 Lymph # (Auto) 1.67 (1.32-3.57) K/mm3 [place] # (Auto) 1.27 H (0.30-0.82) K/mm3 Eos # (Auto) 0.01 L (0.04-0.54) K/mm3 Baso # (Auto) 0.01 (0.01-0.08) K/mm3 Manual Slide Review Sodium (136-145) mEq/L Potassium (3.5-5.1) mEq/L Chloride (98-107) mEq/L Carbon Dioxide (21-32) mEq/L Anion Gap (5-15) BUN (7-18) mg/dL Creatinine (0.7-1.3) mg/dL Est Cr Clr Drug Dosing mL/min Estimated GFR (MDRD) (>60) mL/min BUN/Creatinine Ratio (14-18) Glucose (70-99) mg/dL Lactic Acid 1.0 (0.4-2.0) mmol/L Calcium (8.5-10.1) mg/dL Total Bilirubin (0.2-1.0) mg/dL AST (15-37) U/L ALT (16-63) U/L Alkaline Phosphatase (46-116) U/L Total Protein (6.4-8.2) g/dl Albumin (3.4-5.0) g/dl Globulin gm/dL Albumin/Globulin Ratio (1-2) Urine Color Yellow (Yellow) Urine Appearance Clear (Clear) Urine pH 6.0 (5.0-8.0) Ur Specific [place] > or = 1.030 (1.005-1.030) Urine Protein 1+ H (Negative) Urine Glucose (UA) Negative (Negative) Urine Ketones Negative (Negative) Urine Occult Blood 1+ H (Negative) Urine Nitrite Negative (Negative) Urine Bilirubin Negative (Negative) Urine Urobilinogen 0.2 (0.2-1.0) Ur Leukocyte Esterase Negative (Negative) Urine RBC 5-10 H (0-5) /hpf Urine WBC 0-5 (0-5) /hpf Ur Squamous Epith Cells 0-5 (0-5) /hpf Urine Bacteria Few (FEW) /hpf Urine Mucus Many H (FEW) /hpf Influenza Type A RNA Influenza Type B RNA SARS-CoV-2 RNA (MOISE) (NEGATIVE) 06/09/21 Range/Units 05:40 WBC (4.23-9.07) K/mm3 RBC (4.63-6.08) M/mm3 Hgb (13.7-17.5) gm/dl Hct (40.1-51.0) % MCV (79.0-92.2) fl MCH (25.7-32.2) pg MCHC (32.2-35.5) g/dl RDW Std Deviation (35.1-43.9) fL Plt Count (163-337) K/mm3 MPV (9.4-12.3) fl Neut % (Auto) (34.0-67.9) % Lymph % (Auto) (21.8-53.1) % [place] % (Auto) (5.3-12.2) % Eos % (Auto) (0.8-7.0) Baso % (Auto) (0.1-1.2) % Neut # (Auto) (1.78-5.38) K/mm3 Lymph # (Auto) (1.32-3.57) K/mm3 [place] # (Auto) (0.30-0.82) K/mm3 Eos # (Auto) (0.04-0.54) K/mm3 Baso # (Auto) (0.01-0.08) K/mm3 Manual Slide Review Sodium 139 (136-145) mEq/L Potassium 4.1 (3.5-5.1) mEq/L Chloride 104 (98-107) mEq/L Carbon Dioxide 29 (21-32) mEq/L Anion Gap 10.1 (5-15) BUN 21 H (7-18) mg/dL Creatinine 1.4 H (0.7-1.3) mg/dL Est Cr Clr Drug Dosing 47.07 mL/min Estimated GFR (MDRD) 49 (>60) mL/min BUN/Creatinine Ratio 15.0 (14-18) Glucose 118 H (70-99) mg/dL Lactic Acid (0.4-2.0) mmol/L Calcium 8.2 L (8.5-10.1) mg/dL Total Bilirubin 0.5 (0.2-1.0) mg/dL AST 15 (15-37) U/L ALT 17 (16-63) U/L Alkaline Phosphatase 80 (46-116) U/L Total Protein 6.7 (6.4-8.2) g/dl Albumin 3.3 L (3.4-5.0) g/dl Globulin 3.4 gm/dL Albumin/Globulin Ratio 1.0 (1-2) Urine Color (Yellow) Urine Appearance (Clear) Urine pH (5.0-8.0) Ur Specific [place] (1.005-1.030) Urine Protein (Negative) Urine Glucose (UA) (Negative) Urine Ketones (Negative) Urine Occult Blood (Negative) Urine Nitrite (Negative) Urine Bilirubin (Negative) Urine Urobilinogen (0.2-1.0) Ur Leukocyte Esterase (Negative) Urine RBC (0-5) /hpf Urine WBC (0-5) /hpf Ur Squamous Epith Cells (0-5) /hpf Urine Bacteria (FEW) /hpf Urine Mucus (FEW) /hpf Influenza Type A RNA Influenza Type B RNA SARS-CoV-2 RNA (MOISE) (NEGATIVE) Meds: Medications Discontinued Medications Generic Name Dose Route Start Last Admin Trade Name Freq PRN Reason Stop Dose Admin Acetaminophen 650 mg 06/09/21 03:35 06/09/21 03:42 Acetaminophen 325 Mg Tab PO 06/09/21 03:36 650 mg NOW ONE Administration Acetaminophen 650 mg 06/09/21 07:48 06/09/21 07:52 Acetaminophen 325 Mg Tab PO 06/09/21 07:49 650 mg NOW ONE Administration Hydromorphone HCl 1 mg 06/08/21 17:13 06/08/21 17:27 Hydromorphone 1 Mg/Ml Syringe IVPUSH 06/08/21 17:14 1 mg ONETIME STA Administration Hydromorphone HCl 0.5 mg 06/09/21 00:40 06/09/21 04:41 Hydromorphone 0.5 Mg/0.5 Ml Syringe IVPUSH 0.5 mg Q4H PRN Administration Pain (severe 7-10) Sodium Chloride 1,000 mls @ 999 mls/hr 06/08/21 17:13 06/08/21 17:33 Normal Saline IV 06/08/21 18:13 999 mls/hr ASDIRECTED ONE Administration Ceftriaxone Sodium 2 gm/ 100 mls @ 200 mls/hr 06/08/21 19:12 06/08/21 19:36 Sodium Chloride IV 06/08/21 19:41 200 mls/hr ONETIME ONE Administration Sodium Chloride 1,000 mls @ 100 mls/hr 06/08/21 21:40 06/08/21 21:51 Normal Saline IV 06/09/21 07:39 100 mls/hr ONETIME ONE Administration Ondansetron HCl 4 mg 06/08/21 17:13 06/08/21 17:25 Ondansetron 4 Mg/2 Ml Sdv IVPUSH 06/08/21 17:14 4 mg ONETIME ONE Administration Ondansetron HCl 4 mg 06/09/21 00:41 06/09/21 04:41 Ondansetron 4 Mg/2 Ml Sdv IVPUSH 4 mg Q6H PRN Administration Nausea Tamsulosin HCl 0.4 mg 06/08/21 20:42 06/08/21 21:51 Tamsulosin 0.4 Mg Cap.Er PO 06/08/21 20:43 0.4 mg ONETIME ONE Administration - Re-Assessments/Exams Free Text/Narrative Re-Assessment/Exam: 06/09/21 07:34 The patient had a quiet night in the ED. Reviewing the data, I see that the CT found a 4 mm stone in the proximal right ureter. At that size, the patient will likely pass the stone on his own within 2 weeks. Perinephric stranding can be due to pyelonephritis, however, in this case, the patient's urinalysis is clean, with no suggestion of an infection. Additionally, he has no fever, nausea, or vomiting to suggest pyelonephritis. His leukocytosis is most likely due to demargination, not an infection. That being the case, the patient does not need to be transferred to a facility that can perform a ureteral stent. He can be discharged home with prescriptions for pain medicine, anti-spasm, and nausea, along with a urine strainer, then follow- up with a Urologist as an outpatient if he fails to pass the stone within a reasonable period of time. With respect to the patient's diagnosis of COVID-19, he will need to strictly isolate through 06/18/2021, at which time he should get retested. All the above was discussed with the patient, who was agreeable. Departure - Departure Time of Disposition: 07:36 Condition: Good - Discharge Information *PRESCRIPTION DRUG MONITORING PROGRAM REVIEWED*: Not Applicable *COPY OF PRESCRIPTION DRUG MONITORING REPORT IN PATIENT RAFAEL: Not Applicable
--- NOTE | 2021-06-08 18:21 | CT ---
CT abdomen and pelvis Technique: Multiple axial sections were obtained from above the kidneys inferiorly through the pubic symphysis. Intravenous and oral contrast was not utilized. Study has been performed as a ureteral stone protocol. Reconstructed coronal and axial images were also obtained. Comparison: Previous CT abdomen and pelvis exam of 09/23/19. Findings: Dilated right renal pelvis is seen as well as dilated proximal ureter. These findings are caused by an obstructing calculus within the proximal right ureter measuring about 4 mm. Inflammatory change is seen around the ureter. No other ureteral calculi are seen. There is a small calculus being seen within the bladder measuring around 2-3 mm. Multiple nonobstructing calculi are seen within the right kidney. Single nonobstructing stone is noted within the left kidney. Visualized lung bases show nothing acute. Visualized liver shows no focal abnormality. Numerous gallstones are seen within the gallbladder. Spleen size is normal. Adrenal glands show no nodule. Pancreas shows no discrete abnormality. Abdominal aorta shows atherosclerotic calcification. Slight areas of ectasia/mild aneurysm are seen within the abdominal aorta. These findings are stable from prior exam. No retroperitoneal adenopathy or mesenteric abnormalities are seen. Prostate gland is enlarged. No pelvic mass or adenopathy is seen. Diffuse diverticulosis is noted within the sigmoid colon and descending colon. Other diverticuli are seen within the right colon. Appendix is seen which is normal in size. Bone window settings were reviewed which show scattered degenerative change within the spine most severe at L3-4, L4-5 and L5-S1 with disc space narrowing and vacuum phenomena. Impression: 1. Obstructing stone within the proximal right ureter measuring about 4 mm. Inflammatory change is seen around the ureter at this level. 2. Nonobstructing calculi are seen within both kidneys. Small nonobstructing stone is also noted within the bladder. 3. Numerous gallstones are noted. 4. Other findings which are felt to be stable from prior CT exam. Diagnostic code #3
[2021-06-08] MEDS ORDERED: cefTRIAXone 2 GM in Sodium Chloride 0.9% 100 ML IV ONE (19:12)
[2021-06-08] MEDS ORDERED: Tamsulosin 0.4 MG Cap.ER PO ONE (20:42)
[2021-06-09] MEDS ORDERED: HYDROmorphone 0.5 MG/0.5 ML Syringe IVPUSH PRN (00:40)
[2021-06-09] MEDS ORDERED: Ondansetron 4 MG/2 ML SDV IVPUSH PRN (00:41)
[2021-06-09] MEDS ORDERED: Acetaminophen 325 MG Tab PO ONE ×2 (03:35→07:48)
[2021-06-09 07:55] VITALS: BP 160/86; PULSE 94
== END 2021-06-09 08:11 | disposition home or self-care (01) ==
LOC: JD.ED 16:36
DX: U07.1 COVID-19 (principal); N20.2 Calculus of kidney with calculus of ureter; I25.10 Atherosclerotic heart disease of native coronary artery without angina pectoris; E78.00 Pure hypercholesterolemia, unspecified; I10 Essential (primary) hypertension; I25.2 Old myocardial infarction; M19.90 Unspecified osteoarthritis, unspecified site; N40.0 Benign prostatic hyperplasia without lower urinary tract symptoms; E11.9 Type 2 diabetes mellitus without complications; Z79.82 Long term (current) use of aspirin; Z79.899 Other long term (current) drug therapy
CPT/HCPCS: 36415; 74176; 80053; 81001; 83605; 85025; 87040; 87635; 87804; 96365; 96375; 96376; 99284; A9270; J0696; J1170; J2405; J7030; U0002

== ENCOUNTER 2022-09-21 15:49 | Emergency (ER) | payer MEDICARE, OTHER ==
[2022-09-21 17:43] LABS: CORONAVIRUS COVID-19 NAA NEGATIVE (NEGATIVE)
[2022-09-21 21:44] VITALS: BP 128/83; PULSE 82
== END 2022-09-21 21:00 | disposition home or self-care (01) ==
LOC: JD.ED 15:49
DX: B34.9 Viral infection, unspecified (principal); I25.10 Atherosclerotic heart disease of native coronary artery without angina pectoris; E78.00 Pure hypercholesterolemia, unspecified; I10 Essential (primary) hypertension; I25.2 Old myocardial infarction; E11.9 Type 2 diabetes mellitus without complications; Z79.82 Long term (current) use of aspirin; Z79.899 Other long term (current) drug therapy; Z20.822 Contact with and (suspected) exposure to COVID-19
CPT/HCPCS: 0241U; 36415; 71046; 80053; 83605; 83690; 84484; 85025; 93005; 99283

== ENCOUNTER 2023-05-01 09:42 | Emergency (ER) | payer MEDICARE ==
[2023-05-01 10:21] LABS: BASOPHILS ABSOLUTE AUTO 0.1 K/mm3 (0.0-0.2); BASOPHILS PERCENT AUTO 0.6 % (0.0-1.0); EOSINOPHILS ABSOLUTE AUTO 0.1 K/mm3 (0.0-0.4); EOSINOPHILS PERCENT AUTO 0.6 % (0.0-6.0); HEMATOCRIT 47.5 % (42.0-52.0); HEMOGLOBIN 15.7 gm/dl (14.0-18.0); IMMATURE GRAN ABSOLUTE AUTO 0.09 K/mm3 (0.00-0.05); IMMATURE GRAN PERCENT AUTO 1.1 % (0.0-0.4); LYMPHOCYTES ABSOLUTE AUTO 2.4 K/mm3 (1.0-4.8); MEAN CORPUSCULAR HEMOGLOBIN 29.2 pg (28.0-32.0); MEAN CORPUSCULAR HGB CONC 33.1 g/dl (32.0-36.0); MEAN CORPUSCULAR VOLUME 88.5 fl (83.0-99.0); MEAN PLATELET VOLUME 8.8 fl (9.4-12.4); MONOCYTES ABSOLUTE AUTO 0.7 K/mm3 (0.0-0.8); MONOCYTES PERCENT AUTO 7.8 % (0.0-8.0); NEUTROPHILS ABSOLUTE AUTO 5.3 K/mm3 (1.8-7.7); NEUTROPHILS PERCENT AUTO 61.9 % (41.0-71.0); PLATELET COUNT,PLT 158 K/mm3 (150-400); RED BLOOD CELL COUNT 5.37 M/mm3 (4.52-5.90); WHITE BLOOD CELL COUNT,WBC 8.54 K/mm3 (3.9-11.3)
[2023-05-01] MEDS ORDERED: Sodium Chloride 0.9% 1,000 ML IV SCH (10:30)
[2023-05-01] MEDS ORDERED: Nitroglycerin/D5W 25 MG/250 ML BOTTLE IV SCH (10:30)
[2023-05-01] MEDS ORDERED: HYDROmorphone 0.5 MG/0.5 ML Syringe IVPUSH ONE (10:33)
[2023-05-01] MEDS ORDERED: Metoclopramide 10 MG/2 ML SDV IVPUSH ONE (10:33)
[2023-05-01] MEDS ORDERED: Furosemide 40 MG/4 ML VIAL IVPUSH ONE (10:50)
[2023-05-01 10:59] LABS: A/G RATIO 0.8 (1-2); ALBUMIN 3.2 g/dl (3.4-5.0); ANION GAP 9.7 (5-15); BILIRUBIN TOTAL 0.5 mg/dL (0.2-1.0); BUN/CREATININE RATIO 14.5 (14-18); CALCIUM 8.8 mg/dL (8.5-10.1); CREATININE 1.1 mg/dL (0.7-1.3); EST CRCL DRUG DOSING (CG) 58.07 mL/min; MAGNESIUM 1.7 mg/dL (1.8-2.4); POTASSIUM,K 3.7 mEq/L (3.5-5.1); PROTEIN TOTAL,TP 7.2 g/dl (6.4-8.2)
[2023-05-01 11:14] LABS: INR 0.96; PROTHROMBIN TIME 10.3 SECONDS (9.7-12.0)
[2023-05-01 11:31] LABS: D-DIMER QUANTITATIVE 2.46 mg/L (0.19-0.50)
[2023-05-01] MEDS ORDERED: Iopamidol 755 Mg/ML 100 ML Bottle IVPUSH ONE (13:37)
[2023-05-01] MEDS ORDERED: Sodium Chloride 0.9% 10 ML Syringe FLUSH PRN (13:37)
[2023-05-01 14:52] VITALS: BP 168/100; PULSE 89
== END 2023-05-01 14:52 | disposition home or self-care (01) ==
LOC: JD.ED 09:42
DX: R07.89 Other chest pain (principal); K44.9 Diaphragmatic hernia without obstruction or gangrene; E78.00 Pure hypercholesterolemia, unspecified; I25.10 Atherosclerotic heart disease of native coronary artery without angina pectoris; I10 Essential (primary) hypertension; I25.2 Old myocardial infarction; E11.9 Type 2 diabetes mellitus without complications; Z95.5 Presence of coronary angioplasty implant and graft; Z79.899 Other long term (current) drug therapy; Z87.891 Personal history of nicotine dependence; Z86.16 Personal history of COVID-19
CPT/HCPCS: 36415; 71045; 71275; 80053; 83735; 83880; 84484; 85025; 85379; 85610; 93005; 96365; 96366; 96375; 99285; J1170; J1940; J2765; J3490; Q9967; 93010; 99284

== ENCOUNTER 2025-05-15 14:49 | Emergency (ER) | payer MEDICARE, OTHER ==
[2025-05-15] MEDS ORDERED: Sodium Chloride 0.9% 10 ML Syringe FLUSH PRN (15:28)
[2025-05-15 15:39] LABS: BASOPHILS ABSOLUTE AUTO 0.1 K/mm3 (0.0-0.2); BASOPHILS PERCENT AUTO 0.8 % (0.0-1.0); EOSINOPHILS ABSOLUTE AUTO 0.1 K/mm3 (0.0-0.4); EOSINOPHILS PERCENT AUTO 1.3 % (0.0-6.0); IMMATURE GRAN ABSOLUTE AUTO 0.04 K/mm3 (0.00-0.05); IMMATURE GRAN PERCENT AUTO 0.4 % (0.0-0.4); LYMPHOCYTES ABSOLUTE AUTO 2.8 K/mm3 (1.0-4.8); LYMPHOCYTES PERCENT AUTO 30.0 % (24.0-44.0); MEAN PLATELET VOLUME 9.0 fl (9.4-12.4); MONOCYTES ABSOLUTE AUTO 0.8 K/mm3 (0.0-0.8); MONOCYTES PERCENT AUTO 8.7 % (0.0-8.0); NEUTROPHILS ABSOLUTE AUTO 5.4 K/mm3 (1.8-7.7); NEUTROPHILS PERCENT AUTO 58.8 % (41.0-71.0); NRBC ABSOLUTE 0.00 (0.00-0.02); NRBC PERCENT 0.0 % (0.0-0.2); PLATELET COUNT,PLT 177 K/mm3 (150-400); RED BLOOD CELL COUNT 5.04 M/mm3 (4.52-5.90); WHITE BLOOD CELL COUNT,WBC 9.18 K/mm3 (3.9-11.3)
[2025-05-15 15:46] LABS: ESTIMATED GFR 62.0 mL/min (>60); GLUCOSE RANDOM 121.0 mg/dL (70-99); POTASSIUM,K 3.6 mEq/L (3.5-5.1)
[2025-05-15 16:00] LABS: APPEARANCE,URINE CLEAR (Clear); GLUCOSE,URINE NEGATIVE (Negative); OCCULT BLOOD,URINE TRACE-INTACT (Negative)
[2025-05-15] MEDS ORDERED: Sodium Chloride 0.9% 10 ML Syringe FLUSH ONE (16:00)
[2025-05-15 16:12] LABS: EPITHELIAL CELLS,URINE 0-5 /hpf (0-5)
[2025-05-15 16:12] LABS: A/G RATIO 0.8 (1-2); ALANINE AMINOTRANSFERASE,ALT 22.0 U/L (16-63); ASPARTATE AMNIOTRANSFERASE,AST 19.0 U/L (15-37); BILIRUBIN TOTAL 0.3 mg/dL (0.2-1.0); BLOOD UREA NITROGEN,BUN 23.0 mg/dL (7-18); CARBON DIOXIDE,CO2 32.0 mEq/L (21-32); CHLORIDE,CL 104.0 mEq/L (98-107); CREATININE 1.2 mg/dL (0.7-1.3); EST CRCL DRUG DOSING (CG) 51.54 mL/min; PROTEIN TOTAL,TP 6.6 g/dl (6.4-8.2); SODIUM,NA 143.0 mEq/L (136-145); TROPONIN I HIGH SENSITIVITY 8.0 pg/mL (<=76); TSH 1.202 uIU/mL (0.358-3.74)
[2025-05-15] MEDS: Alum Hydrox/Mag Hydrox/Simeth 30 ML, Lidocaine 2% 15 ML PO ONE (16:14)
[2025-05-15] MEDS: Iopamidol 755 Mg/ML 100 ML Bottle IVPUSH ONE (16:29)
[2025-05-15 19:51] VITALS: BP 156/96; PULSE 84
== END 2025-05-15 19:49 | disposition home or self-care (01) ==
LOC: JD.ED 14:49
DX: R10.13 Epigastric pain (principal); R07.9 Chest pain, unspecified; I25.10 Atherosclerotic heart disease of native coronary artery without angina pectoris; E78.00 Pure hypercholesterolemia, unspecified; I25.2 Old myocardial infarction; I10 Essential (primary) hypertension; E11.9 Type 2 diabetes mellitus without complications; Z86.16 Personal history of COVID-19; Z79.82 Long term (current) use of aspirin; Z95.5 Presence of coronary angioplasty implant and graft; Z79.899 Other long term (current) drug therapy
CPT/HCPCS: 36415; 71275; 74177; 80053; 81001; 83690; 83735; 83880; 84443; 84484; 85025; 93005; 96360; 99285; A9270; J3490; J7030; Q9967